=== PATIENT | female | born 1975 | race Caucasian/White ===

== ENCOUNTER 2016-11-06 17:59 | Emergency (ER) | payer MEDICARE ==
[~2016-11-06] VITALS: Wt 125.2 kg
[~2016-11-06 17:59] MED LIST: ABILIFY10 MG PO; ANAPROX DS550 MG PO; ANTIVERT25 MG PO; AUGMENTIN 875 M1 TAB PO; AVPAK AZITHROM250 M1 PO; AZITHROMYCIN500 M2 PO; B12,B-12,B 12500 MC1 PO; BACTRIM DS 8001 TA1 PO; BENTYL10 MG PO; BLEPH-10 15 ML15 ML OPH; CEFDINIR300 MG PO; CIPRODEX 0.3%-7.5 M1; CIPRODEX 0.3%-7.5 ML OT; CIPROFLOXACIN750 MG PO; CLARITIN10 MG PO; CLINDAMYCIN150 MG PO; CLONAZEPAM1 M1; CORTISPORIN SUS10 ML OT; CYCLOBENZAPRINE10 MG PO; DOXYCYCLINE HY100 M3 PO; DUONEB 3 MG/3 ML3 M1 INH; FLAGYL250 MG PO; FLEXERIL10 MG PO; HYDROCODONE BIT1 T11 PO; KEFLEX500 MG PO; KEPPRA1000 MG PO; KEPPRA500 MG PO; LAMICTAL100 MG PO; LAMICTAL200 MG PO; MACROBID100 M1 PO; MOTRIN800 MG PO; MUCINEX ER600 MG PO; Motrin,Rufen800 MG PO; NAPROSYN500 MG PO; NEURONTIN600 MG PO; NORFLEX100 MG PO; OMNICEF300 MG PO; ONFI PO; ONFI10 M1 PO; PAXIL20 MG PO; PAXIL30 M2 PO; PAXIL30 MG PO; PENICILLIN V500 MG PO; PREDNISONE10 M1 PO; PREDNISONE10 MG PO; PREDNISONE20 M1 PO; PREDNISONE50 MG PO; PROVENTIL0.09 MG/A1 INH; SEPTRA DS 800 M1 TAB PO; TESSALON PERLE100 M1 PO; TOBRADEX 0.1% OP; TOBRADEX 0.1% OT; TRAMADOL HCL50 MG PO; TRILEPTAL300 MG PO; TRILEPTAL600 MG; TRIMOX500 MG PO; TYLENOL W/ CODE1 TAB PO; VIBRAMYCIN100 MG PO; VICODIN 5/500 505 MG PO; VICODIN 500 MG-1 TAB PO; VIMPAT200 MG PO; Vicodin 5/500 505 MG PO; ZITHROMAX Z PA250 MG PO; ZITHROMAX250 MG PO; ZOFRAN ODT4 MG SL; ZONEGRAN100 MG PO
[2016-11-06] MEDS ORDERED: PROVERA10 MG PO (18:17)
[2016-11-06 19:31] VITALS: BP 117/57
[2016-11-06 19:37] LABS: BASO # 0.1 10*3/uL (0.0-0.1); BASO % 0.4 % (0.0-1.0); EOS # 0.6 10*3/uL (0.0-0.4); EOS % 2.5 % (1.0-4.0); HEMATOCRIT 38.2 % (37.0-47.0); HEMOGLOBIN 11.3 g/dl (12.0-16.0); IG # 0.1 10*3/uL (0.0-0.1); LYMPH # 4.8 10*3/uL (1.3-4.4); LYMPH % 20.8 % (27.0-41.0); MEAN CELL VOLUME 82.5 fl (81.0-99.0); MEAN CORPUSCULAR HGB 24.4 pg (27.0-31.0); MEAN CORPUSCULAR HGB CONC 29.6 g/dl (33.0-37.0); MONO # 1.1 10*3/uL (0.1-1.0); MONO % 4.9 % (3.0-9.0); NEUT # 16.2 10*3/uL (2.3-7.9); NEUT % 70.8 % (47.0-73.0); PLATELET COUNT AUTOMATED 589 10*3/uL (130-400); RED BLOOD COUNT 4.63 10*6/uL (4.10-5.10); RED CELL DISTRI WIDTH 16.6 % (0-14.5); WHITE BLOOD COUNT 22.9 10*3/uL (4.8-10.8)
[2016-11-06 19:51] LABS: BUN 5 mg/dl (7-24); CARBON DIOXIDE 30 mmol/L (21-32); CHLORIDE 104 mmol/L (98-107); EST GLOM FILT AFRICAN AMERICAN > 60 ml/min; GLUCOSE 85 mg/dL (65-99); POTASSIUM 4.1 mmol/L (3.5-5.1); SODIUM 141 mmol/L (136-145)
[2016-11-06 19:56] LABS: BILIRUBIN NEGATIVE (NEGATIVE); BLOOD NEGATIVE (NEGATIVE); COLOR YELLOW (YELLOW); GLUCOSE NEGATIVE (NEGATIVE); KETONE NEGATIVE (NEGATIVE); LEUKO ESTERASE NEGATIVE (NEGATIVE); NITRITE NEGATIVE (NEGATIVE); PH 5.5 (5.0-9.0); PROTEIN NEGATIVE (NEGATIVE); SPECIFIC GRAVITY <= 1.005 (1.005-1.030); UROBILINOGEN 0.2 E.U./dl (0.2-1.0)
[2016-11-06 20:09] LABS: BACTERIA 1+; CLARITY SL CLOUDY (CLEAR); EPITHELIAL CELLS 25-30; RBC 0-2 rbc/hpf (0-2); URINE REFLEX COMMENT NO (NO)
[2016-11-06] MEDS ORDERED: BACTRIM DS 8001 TA1 PO (20:14)
[2016-11-06] MEDS ORDERED: ANAPROX DS550 MG PO (20:16)
[2016-12-23] MEDS ORDERED: NAPROSYN500 MG PO (15:23)
[2016-12-23] MEDS ORDERED: HYDROCODONE BIT1 T11 PO (15:23)
== END 2016-11-06 20:22 | disposition home or self-care (01) ==
LOC: ED 17:59
PROVIDERS: Physician Assistant
DX: D72.820 Lymphocytosis (symptomatic) (principal); N23 Unspecified renal colic; F17.200 Nicotine dependence, unspecified, uncomplicated; Z90.49 Acquired absence of other specified parts of digestive tract; Z98.890 Other specified postprocedural states; Z98.51 Tubal ligation status; Z88.1 Allergy status to other antibiotic agents

== ENCOUNTER → 2017-03-17 | Outpatient (CLI) | payer MEDICARE ==
[~2017-03-17] MED LIST changes: +PROVERA10 MG PO
== END | disposition home or self-care (01) ==
LOC: RAD 14:42
DX: R05 Cough (principal); R06.02 Shortness of breath; J40 Bronchitis, not specified as acute or chronic; Z87.891 Personal history of nicotine dependence

== ENCOUNTER 2017-03-31 21:43 | Emergency (ER) | payer MEDICARE ==
[~2017-03-31] VITALS: Ht 160 cm; Wt 124.7 kg
[2017-03-31 23:19] VITALS: BP 114/55
== END 2017-03-31 23:52 | disposition home or self-care (01) ==
LOC: ED 21:43
DX: G43.909 Migraine, unspecified, not intractable, without status migrainosus (principal); J45.909 Unspecified asthma, uncomplicated; E53.8 Deficiency of other specified B group vitamins; F41.8 Other specified anxiety disorders; G40.909 Epilepsy, unspecified, not intractable, without status epilepticus; F17.200 Nicotine dependence, unspecified, uncomplicated; E66.01 Morbid (severe) obesity due to excess calories; Z87.442 Personal history of urinary calculi; Z68.42 Body mass index [BMI] 45.0-49.9, adult; Z90.49 Acquired absence of other specified parts of digestive tract; Z98.51 Tubal ligation status; Z98.890 Other specified postprocedural states; Z79.899 Other long term (current) drug therapy; Z88.1 Allergy status to other antibiotic agents

== ENCOUNTER → 2017-04-14 | Outpatient (CLI) | payer MEDICARE | END | disposition home or self-care (01) | LOC: RAD 11:33 | DX: M25.552 Pain in left hip (principal) ==

== ENCOUNTER 2017-04-30 15:16 | Emergency (ER) | payer MEDICARE ==
[~2017-04-30] VITALS: Ht 160 cm; Wt 124.3 kg
[2017-04-30 15:32] VITALS: BP 122/60
[2017-04-30 16:14] LABS: BASO # 0.1 10*3/uL (0.0-0.1); BASO % 0.5 % (0.0-1.0); EOS # 0.5 10*3/uL (0.0-0.4); EOS % 2.1 % (1.0-4.0); HEMATOCRIT 37.1 % (37.0-47.0); IG # 0.2 10*3/uL (0.0-0.1); LYMPH # 4.3 10*3/uL (1.3-4.4); LYMPH % 19.9 % (27.0-41.0); MEAN CELL VOLUME 82.4 fl (81.0-99.0); MEAN CORPUSCULAR HGB 24.4 pg (27.0-31.0); MEAN CORPUSCULAR HGB CONC 29.6 g/dl (33.0-37.0); MEAN PLATELET VOLUME 9.2 fl (9.6-12.3); MONO # 1.4 10*3/uL (0.1-1.0); MONO % 6.4 % (3.0-9.0); NEUT # 15.3 10*3/uL (2.3-7.9); NEUT % 70.4 % (47.0-73.0); PLATELET COUNT AUTOMATED 451 10*3/uL (130-400); RED CELL DISTRI WIDTH 18.6 % (0-14.5); WHITE BLOOD COUNT 21.7 10*3/uL (4.8-10.8)
[2017-04-30 16:29] LABS: BUN 8 mg/dl (7-24); CARBON DIOXIDE 29 mmol/L (21-32); CHLORIDE 103 mmol/L (98-107); EST GLOM FILT AFRICAN AMERICAN > 60 ml/min; GLUCOSE 85 mg/dL (65-99); POTASSIUM 4.4 mmol/L (3.5-5.1); SODIUM 141 mmol/L (136-145)
[2017-04-30 16:30] LABS: TROPONIN I < 0.015 ng/ml (<0.045)
[2017-04-30] MEDS ORDERED: DELTASONE20 M1 PO (16:49)
[2017-04-30] MEDS ORDERED: ZITHROMAX250 MG PO (16:49)
== END 2017-04-30 16:56 | disposition home or self-care (01) ==
LOC: ED 15:16
PROVIDERS: Emergency Medicine
DX: J21.9 Acute bronchiolitis, unspecified (principal); E11.9 Type 2 diabetes mellitus without complications; G43.909 Migraine, unspecified, not intractable, without status migrainosus; F17.200 Nicotine dependence, unspecified, uncomplicated; Z88.1 Allergy status to other antibiotic agents; Z79.899 Other long term (current) drug therapy

== ENCOUNTER 2017-05-24 00:36 | Emergency (ER) | payer MEDICARE ==
[~2017-05-24] VITALS: Ht 160 cm; Wt 123.4 kg
[~2017-05-24 00:36] MED LIST changes: +DELTASONE20 M1 PO
[2017-05-24 01:04] LABS: HEMATOCRIT 37.5 % (37.0-47.0); HEMOGLOBIN 11.4 g/dl (12.0-16.0); MEAN CELL VOLUME 82.2 fl (81.0-99.0); MEAN CORPUSCULAR HGB CONC 30.4 g/dl (33.0-37.0); MEAN PLATELET VOLUME 8.9 fl (9.6-12.3); PLATELET COUNT AUTOMATED 449 10*3/uL (130-400); RED BLOOD COUNT 4.56 10*6/uL (4.10-5.10); WHITE BLOOD COUNT 19.2 10*3/uL (4.8-10.8)
[2017-05-24 01:13] LABS: BILIRUBIN NEGATIVE (NEGATIVE); BLOOD NEGATIVE (NEGATIVE); CLARITY SL CLOUDY (CLEAR); COLOR YELLOW (YELLOW); GLUCOSE NEGATIVE (NEGATIVE); KETONE NEGATIVE (NEGATIVE); LEUKO ESTERASE NEGATIVE (NEGATIVE); NITRITE NEGATIVE (NEGATIVE); PROTEIN TRACE (NEGATIVE); SPECIFIC GRAVITY >= 1.030 (1.005-1.030)
[2017-05-24 01:20] LABS: ALBUMIN 3.4 gm/dl (3.1-4.5); ALKALINE PHOSPHATASE 86 U/L (45-117); BILIRUBIN, TOTAL 0.2 mg/dl (0.2-1.0); BUN 8 mg/dl (7-24); C-REACTIVE PROTEIN 1.15 MG/DL (0-0.3); CARBON DIOXIDE 25 mmol/L (21-32); CHLORIDE 107 mmol/L (98-107); EST GLOM FILT AFRICAN AMERICAN > 60 ml/min; GLUCOSE 123 mg/dL (65-99); SGOT/AST 11 IU/L (3-35); SGPT/ALT 22 U/L (12-78); SODIUM 139 mmol/L (136-145); TOTAL PROTEIN 7.1 gm/dL (6.4-8.2)
[2017-05-24 01:20] LABS: BACTERIA 2+; CALCIUM OXALATE CRYSTALS 1+; EPITHELIAL CELLS 35-40; URINE REFLEX COMMENT YES (NO); WBC 0-2 wbc/hpf (0-5)
[2017-05-24 01:25] LABS: ATYPICAL LYMPHS 1 % (0-0); EOSINOPHIL # 0.8 10*3/uL (0-0.4); EOSINOPHILS 4 % (1-4); LYMPHOCYTE # 5.6 10*3/uL (1.3-4.4); METAMYELOCYTES 2 % (0-0); NEUTROPHIL # 11.5 10*3/uL (2.3-7.9); NEUTROPHILS 60 % (47-73); TOTAL CELLS COUNTED 100 #CELLS
[2017-05-24 01:26] LABS: PLATELET SUFFICIENCY HIGH (NORMAL); POLYCHROMASIA SLIGHT
[2017-05-24] MEDS ORDERED: BACTRIM DS 8001 TA1 PO (03:09)
[2017-05-24 20:39] VITALS: BP 147/77
[2017-05-24 21:11] LABS: BILIRUBIN NEGATIVE (NEGATIVE); BLOOD TRACE-INTACT (NEGATIVE); CLARITY SL CLOUDY (CLEAR); COLOR YELLOW (YELLOW); GLUCOSE NEGATIVE (NEGATIVE); KETONE NEGATIVE (NEGATIVE); LEUKO ESTERASE NEGATIVE (NEGATIVE); NITRITE NEGATIVE (NEGATIVE); PH 5.5 (5.0-9.0); PROTEIN NEGATIVE (NEGATIVE); SPECIFIC GRAVITY <= 1.005 (1.005-1.030); UROBILINOGEN 0.2 E.U./dl (0.2-1.0)
[2017-05-24 21:17] LABS: BASO # 0.1 10*3/uL (0.0-0.1); BASO % 0.3 % (0.0-1.0); EOS # 0.6 10*3/uL (0.0-0.4); EOS % 2.6 % (1.0-4.0); HEMOGLOBIN 11.1 g/dl (12.0-16.0); IG # 0.1 10*3/uL (0.0-0.1); LYMPH # 3.6 10*3/uL (1.3-4.4); MEAN CELL VOLUME 82.4 fl (81.0-99.0); MEAN CORPUSCULAR HGB 25.4 pg (27.0-31.0); MEAN CORPUSCULAR HGB CONC 30.8 g/dl (33.0-37.0); MEAN PLATELET VOLUME 8.9 fl (9.6-12.3); MONO % 4.9 % (3.0-9.0); NEUT # 15.8 10*3/uL (2.3-7.9); NEUT % 74.6 % (47.0-73.0); PLATELET COUNT AUTOMATED 415 10*3/uL (130-400); RED BLOOD COUNT 4.37 10*6/uL (4.10-5.10); RED CELL DISTRI WIDTH 20.3 % (0-14.5); WHITE BLOOD COUNT 21.2 10*3/uL (4.8-10.8)
[2017-05-24 21:19] LABS: BACTERIA 4+; EPITHELIAL CELLS 16-20; URINE REFLEX COMMENT YES (NO); WBC 0-2 wbc/hpf (0-5)
[2017-05-24 21:29] LABS: BUN 6 mg/dl (7-24); CARBON DIOXIDE 25 mmol/L (21-32); CHLORIDE 105 mmol/L (98-107); EST GLOM FILT AFRICAN AMERICAN > 60 ml/min; GLUCOSE 122 mg/dL (65-99); POTASSIUM 4.2 mmol/L (3.5-5.1); SODIUM 139 mmol/L (136-145)
[2017-05-24] MEDS ORDERED: HYDROCODONE BIT1 T11 PO (22:59)
[2017-05-24] MEDS ORDERED: ZOFRAN ODT4 MG SL (22:59)
[2017-05-24] MEDS ORDERED: OMNICEF300 MG PO (23:00)
== END 2017-05-24 23:41 | disposition home or self-care (01) ==
LOC: ED 00:36
PROVIDERS: Physician Assistant; Student in an Organized Health Care Education/Training Program
DX: N39.0 Urinary tract infection, site not specified (principal); R30.0 Dysuria; M54.5 Low back pain; D72.829 Elevated white blood cell count, unspecified; R10.9 Unspecified abdominal pain; G43.909 Migraine, unspecified, not intractable, without status migrainosus; F17.200 Nicotine dependence, unspecified, uncomplicated; Z88.1 Allergy status to other antibiotic agents; Z79.899 Other long term (current) drug therapy; Z87.442 Personal history of urinary calculi; Z90.49 Acquired absence of other specified parts of digestive tract

== ENCOUNTER → 2017-06-01 | Outpatient (CLI) | payer MEDICARE ==
[2017-06-02 17:10] LABS: LEUKOCYTE ALK PHOSPHATASE 139 (25-130)
== END | disposition home or self-care (01) ==
LOC: LAB 12:28
PROVIDERS: Internal Medicine Hematology & Oncology
DX: D72.829 Elevated white blood cell count, unspecified (principal); D75.9 Disease of blood and blood-forming organs, unspecified

== ENCOUNTER → 2017-06-25 | Outpatient (CLI) | payer MEDICARE ==
[2017-06-25 15:23] LABS: MAGNESIUM 2.1 mg/dL (1.5-2.1); URIC ACID 4.7 mg/dL (2.6-6.0)
[2017-06-25 16:14] LABS: PTH INTACT 47.9 pg/mL (14.0-72.0)
== END | disposition home or self-care (01) ==
LOC: LAB 14:20
PROVIDERS: Urology
DX: N20.0 Calculus of kidney (principal); E55.9 Vitamin D deficiency, unspecified

== ENCOUNTER 2017-07-24 20:54 | Emergency (ER) | payer MEDICARE ==
[~2017-07-24] VITALS: Ht 157.4 cm; Wt 124.3 kg
[2017-07-24 21:14] VITALS: BP 130/54
== END 2017-07-25 00:13 | disposition home or self-care (01) ==
LOC: ED 20:54
DX: S90.01XA Contusion of right ankle, initial encounter (principal); E11.9 Type 2 diabetes mellitus without complications; J45.909 Unspecified asthma, uncomplicated; G43.909 Migraine, unspecified, not intractable, without status migrainosus; F17.200 Nicotine dependence, unspecified, uncomplicated; Z88.1 Allergy status to other antibiotic agents; Z79.899 Other long term (current) drug therapy; W10.9XXA Fall (on) (from) unspecified stairs and steps, initial encounter; Y93.89 Activity, other specified; Y92.89 Other specified places as the place of occurrence of the external cause; Y99.8 Other external cause status

== ENCOUNTER 2017-08-14 19:43 | Emergency (ER) | payer MEDICARE ==
[~2017-08-14] VITALS: Ht 157.4 cm; Wt 128.8 kg
[2017-08-14 20:01] VITALS: BP 124/60
== END 2017-08-14 21:45 | disposition home or self-care (01) ==
LOC: ED 19:43
DX: S80.12XA Contusion of left lower leg, initial encounter (principal); R51 Headache; E11.9 Type 2 diabetes mellitus without complications; G43.909 Migraine, unspecified, not intractable, without status migrainosus; F17.200 Nicotine dependence, unspecified, uncomplicated; Z79.899 Other long term (current) drug therapy; Z88.1 Allergy status to other antibiotic agents; W22.8XXA Striking against or struck by other objects, initial encounter; Y93.89 Activity, other specified; Y92.89 Other specified places as the place of occurrence of the external cause; Y99.8 Other external cause status

== ENCOUNTER 2017-08-16 00:12 | Emergency (ER) | payer MEDICARE ==
[~2017-08-16] VITALS: Ht 157.4 cm; Wt 128.8 kg
[2017-08-16 01:16] LABS: HEMATOCRIT 35.2 % (37.0-47.0); HEMOGLOBIN 10.4 g/dl (12.0-16.0); MEAN CELL VOLUME 86.1 fl (81.0-99.0); MEAN CORPUSCULAR HGB 25.4 pg (27.0-31.0); MEAN CORPUSCULAR HGB CONC 29.5 g/dl (33.0-37.0); MEAN PLATELET VOLUME 9.2 fl (9.6-12.3); PLATELET COUNT AUTOMATED 432 10*3/uL (130-400); RED BLOOD COUNT 4.09 10*6/uL (4.10-5.10); RED CELL DISTRI WIDTH 18.4 % (0-14.5); WHITE BLOOD COUNT 15.5 10*3/uL (4.8-10.8)
[2017-08-16 01:30] LABS: ALBUMIN 3.2 gm/dl (3.1-4.5); ALKALINE PHOSPHATASE 85 U/L (45-117); BUN 8 mg/dl (7-24); CHLORIDE 104 mmol/L (98-107); CREATININE 0.68 mg/dL (0.55-1.02); POTASSIUM 4.2 mmol/L (3.5-5.1); SGOT/AST 14 IU/L (3-35); SGPT/ALT 16 U/L (12-78); SODIUM 141 mmol/L (136-145); TOTAL PROTEIN 6.6 gm/dL (6.4-8.2)
[2017-08-16 01:40] LABS: ATYPICAL LYMPHS 1 % (0-0); BASOPHILS 3 % (0-1); TOTAL CELLS COUNTED 100 #CELLS
[2017-08-16 01:41] LABS: PLATELET SUFFICIENCY NORMAL (NORMAL); POLYCHROMASIA SLIGHT
[2017-08-16 01:44] LABS: BILIRUBIN NEGATIVE (NEGATIVE); BLOOD NEGATIVE (NEGATIVE); CLARITY SL CLOUDY (CLEAR); COLOR YELLOW (YELLOW); GLUCOSE NEGATIVE (NEGATIVE); KETONE TRACE (NEGATIVE); LEUKO ESTERASE NEGATIVE (NEGATIVE); NITRITE NEGATIVE (NEGATIVE); PH 5.5 (5.0-9.0); SPECIFIC GRAVITY >= 1.030 (1.005-1.030)
[2017-08-16 01:52] LABS: BACTERIA 1+; EPITHELIAL CELLS 45-50
[2017-08-16 01:53] LABS: WBC 0-2 wbc/hpf (0-5)
[2017-08-16 03:02] VITALS: BP 134/51
[2017-08-16] MEDS ORDERED: CYCLOBENZAPRINE5 M3 PO (03:02)
== END 2017-08-16 03:07 | disposition home or self-care (01) ==
LOC: ED 00:12
PROVIDERS: Nurse Practitioner Family
DX: M54.5 Low back pain (principal); F17.200 Nicotine dependence, unspecified, uncomplicated; G43.909 Migraine, unspecified, not intractable, without status migrainosus; E66.01 Morbid (severe) obesity due to excess calories; E11.9 Type 2 diabetes mellitus without complications; Z87.442 Personal history of urinary calculi; Z68.42 Body mass index [BMI] 45.0-49.9, adult; Z90.49 Acquired absence of other specified parts of digestive tract; Z98.890 Other specified postprocedural states; Z98.51 Tubal ligation status; Z79.899 Other long term (current) drug therapy; Z88.1 Allergy status to other antibiotic agents

== ENCOUNTER 2017-11-03 00:27 | Emergency (ER) | payer MEDICARE ==
[~2017-11-03] VITALS: Ht 160 cm; Wt 124.3 kg
[~2017-11-03 00:27] MED LIST changes: +CYCLOBENZAPRINE5 M3 PO
[2017-11-03 00:52] LABS: HEMATOCRIT 36.3 % (37.0-47.0); MEAN CELL VOLUME 83.4 fl (81.0-99.0); MEAN CORPUSCULAR HGB 25.3 pg (27.0-31.0); MEAN CORPUSCULAR HGB CONC 30.3 g/dl (33.0-37.0); MEAN PLATELET VOLUME 8.7 fl (9.6-12.3); PLATELET COUNT AUTOMATED 447 10*3/uL (130-400); RED BLOOD COUNT 4.35 10*6/uL (4.10-5.10); RED CELL DISTRI WIDTH 17.2 % (0-14.5); WHITE BLOOD COUNT 16.8 10*3/uL (4.8-10.8)
[2017-11-03 01:01] LABS: ACT PARTIAL THROMBO TIME 26.3 SECONDS (20.8-31.5)
[2017-11-03 01:10] LABS: BASOPHILS 1 % (0-1); PLATELET SUFFICIENCY HIGH (NORMAL); TOTAL CELLS COUNTED 100 #CELLS
[2017-11-03 01:11] LABS: POLYCHROMASIA SLIGHT
[2017-11-03 01:12] LABS: ALBUMIN 3.4 gm/dl (3.1-4.5); ALKALINE PHOSPHATASE 83 U/L (45-117); BUN 5 mg/dl (7-24); CHLORIDE 102 mmol/L (98-107); CREATININE 0.69 mg/dL (0.55-1.02); POTASSIUM 3.7 mmol/L (3.5-5.1); SGOT/AST 14 IU/L (3-35); SGPT/ALT 19 U/L (12-78); SODIUM 137 mmol/L (136-145); TOTAL PROTEIN 6.8 gm/dL (6.4-8.2)
[2017-11-03 01:15] LABS: TROPONIN I < 0.015 ng/ml (<0.045)
[2017-11-03 02:54] VITALS: BP 131/76
== END 2017-11-03 03:32 | disposition home or self-care (01) ==
LOC: ED 00:27
PROVIDERS: Student in an Organized Health Care Education/Training Program
DX: R07.89 Other chest pain (principal); J45.901 Unspecified asthma with (acute) exacerbation; F32.9 Major depressive disorder, single episode, unspecified; F17.200 Nicotine dependence, unspecified, uncomplicated; F41.9 Anxiety disorder, unspecified; Z87.442 Personal history of urinary calculi; Z88.1 Allergy status to other antibiotic agents; Z79.899 Other long term (current) drug therapy; Z68.42 Body mass index [BMI] 45.0-49.9, adult; Z90.49 Acquired absence of other specified parts of digestive tract; Z90.89 Acquired absence of other organs; Z98.51 Tubal ligation status

== ENCOUNTER → 2017-11-04 | Outpatient (CLI) | payer MEDICARE ==
[2017-11-04 14:39] LABS: BASO # 0.1 10*3/uL (0.0-0.1); BASO % 0.6 % (0.0-1.0); EOS # 0.6 10*3/uL (0.0-0.4); EOS % 3.3 % (1.0-4.0); HEMOGLOBIN 11.5 g/dl (12.0-16.0); LYMPH # 4.8 10*3/uL (1.3-4.4); LYMPH % 27.7 % (27.0-41.0); MEAN CELL VOLUME 83.5 fl (81.0-99.0); MEAN CORPUSCULAR HGB 25.3 pg (27.0-31.0); MEAN CORPUSCULAR HGB CONC 30.3 g/dl (33.0-37.0); MEAN PLATELET VOLUME 8.4 fl (9.6-12.3); MONO # 1.4 10*3/uL (0.1-1.0); MONO % 8.2 % (3.0-9.0); NEUT # 10.3 10*3/uL (2.3-7.9); NEUT % 59.6 % (47.0-73.0); PLATELET COUNT AUTOMATED 476 10*3/uL (130-400); RED BLOOD COUNT 4.55 10*6/uL (4.10-5.10); RED CELL DISTRI WIDTH 17.5 % (0-14.5); WHITE BLOOD COUNT 17.3 10*3/uL (4.8-10.8)
== END | disposition home or self-care (01) ==
LOC: LAB 14:16
PROVIDERS: Internal Medicine Hematology & Oncology
DX: D72.829 Elevated white blood cell count, unspecified (principal)

== ENCOUNTER 2017-12-13 21:14 | Emergency (ER) | payer MEDICARE ==
[~2017-12-13] VITALS: Ht 160 cm; Wt 118.4 kg
[2017-12-13 21:19] VITALS: BP 135/64
[2017-12-13] MEDS ORDERED: LISINOPRIL5 MG PO (21:24)
[2017-12-13 21:55] LABS: BILIRUBIN NEGATIVE (NEGATIVE); BLOOD NEGATIVE (NEGATIVE); CLARITY SL CLOUDY (CLEAR); COLOR YELLOW (YELLOW); GLUCOSE NEGATIVE (NEGATIVE); KETONE NEGATIVE (NEGATIVE); LEUKO ESTERASE NEGATIVE (NEGATIVE); NITRITE NEGATIVE (NEGATIVE); PH 5.5 (5.0-9.0); UROBILINOGEN 0.2 E.U./dl (0.2-1.0)
[2017-12-13 22:01] LABS: BACTERIA 2+; RBC 0-2 rbc/hpf (0-2)
== END 2017-12-13 22:09 | disposition home or self-care (01) ==
LOC: ED 21:14
PROVIDERS: Student in an Organized Health Care Education/Training Program
DX: M54.16 Radiculopathy, lumbar region (principal); J45.901 Unspecified asthma with (acute) exacerbation; F32.9 Major depressive disorder, single episode, unspecified; F41.9 Anxiety disorder, unspecified; N20.0 Calculus of kidney; E78.1 Pure hyperglyceridemia; G43.909 Migraine, unspecified, not intractable, without status migrainosus; F17.200 Nicotine dependence, unspecified, uncomplicated; Z88.1 Allergy status to other antibiotic agents; Z88.8 Allergy status to other drugs, medicaments and biological substances; Z90.89 Acquired absence of other organs; Z90.49 Acquired absence of other specified parts of digestive tract; Z98.51 Tubal ligation status

== ENCOUNTER → 2018-01-07 | Outpatient (CLI) | payer MEDICARE ==
[~2018-01-07] MED LIST changes: +LISINOPRIL5 MG PO
== END | disposition home or self-care (01) ==
LOC: RAD 12:34
DX: M17.11 Unilateral primary osteoarthritis, right knee (principal)

== ENCOUNTER 2018-01-27 02:43 | Emergency (ER) | payer MEDICARE ==
[~2018-01-27] VITALS: Ht 167.6 cm; Wt 113.4 kg
[2018-01-27 02:48] VITALS: BP 125/66
[2018-01-27] MEDS ORDERED: ANAPROX DS550 MG PO (04:13)
== END 2018-01-27 04:45 | disposition home or self-care (01) ==
LOC: ED 02:43
DX: S96.911A Strain of unspecified muscle and tendon at ankle and foot level, right foot, initial encounter (principal); S80.01XA Contusion of right knee, initial encounter; M17.11 Unilateral primary osteoarthritis, right knee; G43.909 Migraine, unspecified, not intractable, without status migrainosus; E66.01 Morbid (severe) obesity due to excess calories; E11.9 Type 2 diabetes mellitus without complications; F17.200 Nicotine dependence, unspecified, uncomplicated; Z68.43 Body mass index [BMI] 50.0-59.9, adult; Z90.49 Acquired absence of other specified parts of digestive tract; Z98.890 Other specified postprocedural states; Z87.442 Personal history of urinary calculi; Z98.51 Tubal ligation status; Z79.899 Other long term (current) drug therapy; Z88.1 Allergy status to other antibiotic agents; W19.XXXA Unspecified fall, initial encounter; Y93.89 Activity, other specified; Y92.89 Other specified places as the place of occurrence of the external cause; Y99.9 Unspecified external cause status

== ENCOUNTER → 2018-02-05 | Outpatient (CLI) | payer MEDICARE ==
[2018-02-05 10:23] LABS: BASO # 0.1 10*3/uL (0.0-0.1); BASO % 0.8 % (0.0-1.0); EOS # 0.6 10*3/uL (0.0-0.4); EOS % 4.5 % (1.0-4.0); HEMATOCRIT 38.9 % (37.0-47.0); HEMOGLOBIN 11.6 g/dl (12.0-16.0); LYMPH # 3.4 10*3/uL (1.3-4.4); LYMPH % 27.5 % (27.0-41.0); MEAN CELL VOLUME 87.2 fl (81.0-99.0); MEAN CORPUSCULAR HGB CONC 29.8 g/dl (33.0-37.0); MEAN PLATELET VOLUME 8.7 fl (9.6-12.3); MONO # 0.8 10*3/uL (0.1-1.0); MONO % 6.3 % (3.0-9.0); NEUT # 7.6 10*3/uL (2.3-7.9); NEUT % 60.4 % (47.0-73.0); PLATELET COUNT AUTOMATED 465 10*3/uL (130-400); RED BLOOD COUNT 4.46 10*6/uL (4.10-5.10); RED CELL DISTRI WIDTH 17.1 % (0-14.5); WHITE BLOOD COUNT 12.5 10*3/uL (4.8-10.8)
== END | disposition home or self-care (01) ==
LOC: LAB 10:07
PROVIDERS: Internal Medicine Hematology & Oncology
DX: D75.9 Disease of blood and blood-forming organs, unspecified (principal)

== ENCOUNTER → 2018-02-19 | Outpatient (CLI) | payer MEDICARE ==
[~2018-02-19] MED LIST changes: +MIRAPEX0.125 M1 PO
== END | disposition home or self-care (01) ==
LOC: RAD 10:27
DX: M54.5 Low back pain (principal)

== ENCOUNTER 2018-02-20 22:52 | Emergency (ER) | payer MEDICARE ==
[~2018-02-20] VITALS: Ht 160 cm; Wt 118.4 kg
[~2018-02-20 22:52] MED LIST changes: -MIRAPEX0.125 M1 PO
[2018-02-20 23:31] VITALS: BP 99/50
[2018-02-21] MEDS ORDERED: MIRAPEX0.125 M1 PO (15:18)
== END 2018-02-21 00:24 | disposition home or self-care (01) ==
LOC: ED 22:52
DX: R20.2 Paresthesia of skin (principal); Z90.49 Acquired absence of other specified parts of digestive tract; Z79.899 Other long term (current) drug therapy; Z88.1 Allergy status to other antibiotic agents

== ENCOUNTER 2018-02-21 15:13 | Emergency (ER) | payer MEDICARE ==
[~2018-02-21] VITALS: Ht 160 cm; Wt 118.4 kg
[2018-02-21] MEDS ORDERED: MIRAPEX0.125 M1 PO (15:18)
[2018-02-21 15:47] LABS: BASO # 0.1 10*3/uL (0.0-0.1); BASO % 0.7 % (0.0-1.0); EOS # 0.5 10*3/uL (0.0-0.4); EOS % 3.4 % (1.0-4.0); HEMATOCRIT 37.9 % (37.0-47.0); HEMOGLOBIN 11.8 g/dl (12.0-16.0); LYMPH # 3.9 10*3/uL (1.3-4.4); LYMPH % 24.6 % (27.0-41.0); MEAN CELL VOLUME 85.2 fl (81.0-99.0); MEAN CORPUSCULAR HGB 26.5 pg (27.0-31.0); MEAN CORPUSCULAR HGB CONC 31.1 g/dl (33.0-37.0); MEAN PLATELET VOLUME 8.8 fl (9.6-12.3); MONO # 0.8 10*3/uL (0.1-1.0); MONO % 5.3 % (3.0-9.0); NEUT # 10.3 10*3/uL (2.3-7.9); NEUT % 65.6 % (47.0-73.0); PLATELET COUNT AUTOMATED 433 10*3/uL (130-400); RED BLOOD COUNT 4.45 10*6/uL (4.10-5.10); RED CELL DISTRI WIDTH 16.5 % (0-14.5); WHITE BLOOD COUNT 15.7 10*3/uL (4.8-10.8)
[2018-02-21 16:04] LABS: ALBUMIN 3.4 gm/dl (3.1-4.5); ALKALINE PHOSPHATASE 101 U/L (45-117); BUN 10 mg/dl (7-24); CHLORIDE 102 mmol/L (98-107); CREATININE 0.73 mg/dL (0.55-1.02); POTASSIUM 3.8 mmol/L (3.5-5.1); SGOT/AST 7 IU/L (3-35); SGPT/ALT 19 U/L (12-78); SODIUM 137 mmol/L (136-145); TOTAL PROTEIN 6.9 gm/dL (6.4-8.2)
[2018-02-21 16:06] LABS: TROPONIN I < 0.015 ng/ml (<0.045)
[2018-02-21 16:12] LABS: BILIRUBIN NEGATIVE (NEGATIVE); BLOOD NEGATIVE (NEGATIVE); CLARITY CLEAR (CLEAR); COLOR YELLOW (YELLOW); GLUCOSE NEGATIVE (NEGATIVE); KETONE NEGATIVE (NEGATIVE); LEUKO ESTERASE NEGATIVE (NEGATIVE); NITRITE NEGATIVE (NEGATIVE)
[2018-02-21 16:32] LABS: BACTERIA 1+; EPITHELIAL CELLS 50-55; RBC 0-2 rbc/hpf (0-2); WBC 0-2 wbc/hpf (0-5)
[2018-02-21 16:33] VITALS: BP 110/64
== END 2018-02-21 16:34 | disposition home or self-care (01) ==
LOC: ED 15:13
PROVIDERS: Emergency Medicine
DX: R20.2 Paresthesia of skin (principal); R53.1 Weakness; R20.0 Anesthesia of skin; J45.909 Unspecified asthma, uncomplicated; G43.909 Migraine, unspecified, not intractable, without status migrainosus; E11.9 Type 2 diabetes mellitus without complications; F17.200 Nicotine dependence, unspecified, uncomplicated; Z88.1 Allergy status to other antibiotic agents; Z79.899 Other long term (current) drug therapy

== ENCOUNTER → 2018-03-01 | Outpatient (CLI) | payer MEDICARE ==
[~2018-03-01] MED LIST changes: +MIRAPEX0.125 M1 PO
== END | disposition home or self-care (01) ==
LOC: LAB 13:44
PROVIDERS: Physician Assistant Medical
DX: R58 Hemorrhage, not elsewhere classified (principal)

== ENCOUNTER → 2018-03-03 | Outpatient (CLI) | payer MEDICARE | END | disposition home or self-care (01) | LOC: US 10:27 | DX: R20.0 Anesthesia of skin (principal); R20.2 Paresthesia of skin; F17.200 Nicotine dependence, unspecified, uncomplicated ==

== ENCOUNTER → 2018-03-04 | Outpatient (CLI) | payer MEDICARE | END | disposition home or self-care (01) | LOC: MRI 00:17 | DX: M54.16 Radiculopathy, lumbar region (principal); G89.29 Other chronic pain; M54.5 Low back pain; R29.810 Facial weakness; R20.0 Anesthesia of skin; R20.2 Paresthesia of skin ==

== ENCOUNTER → 2018-03-24 | Outpatient (CLI) | payer MEDICARE ==
[~2018-03-24] MED LIST changes: +ASPIRIN81 M1 PO; +GLUCOTROL XL2.5 MG PO; -MIRAPEX0.125 M1 PO; +MIRAPEX0.25 M1 PO; +VITAMIN D5000 UNIT PO
[2018-03-25 16:08] LABS: ANTICARDIOLIPIN AB, IGG, QN 16 GPL U/mL (0-14); ANTICARDIOLIPIN AB, IGM, QN <9 MPL U/mL (0-12)
[2018-03-26 00:08] LABS: ANTI-THROMBIN III ACTIVITY 107 % (75-135); PROTEIN S-FUNCTIONAL 164525 93 % (63-140); PTT-LA 47.9 sec (0.0-51.9)
[2018-03-26 06:13] LABS: LUPUS DRVVT 51.6 sec (0.0-47.0); LUPUS REFLEX INTERPRETATION Comment: (.)
[2018-03-26 13:07] LABS: PHOSPHOLIPIDS 001727 246 mg/dL (150-250)
== END | disposition home or self-care (01) ==
LOC: LAB 13:59
PROVIDERS: Physician Assistant Medical
DX: G45.9 Transient cerebral ischemic attack, unspecified (principal); R58 Hemorrhage, not elsewhere classified

== ENCOUNTER 2018-03-25 05:16 | Inpatient (IN) | payer MEDICARE ==
[~2018-03-25] VITALS: Ht 158.8 cm; Wt 123.9 kg
[2018-03-25 05:16] VITALS: BP 105/54
[~2018-03-25 05:16] MED LIST changes: -ASPIRIN81 M1 PO; -GLUCOTROL XL2.5 MG PO; -VITAMIN D5000 UNIT PO
[2018-03-25 05:46] LABS: BASO # 0.1 10*3/uL (0.0-0.1); BASO % 0.6 % (0.0-1.0); EOS # 0.6 10*3/uL (0.0-0.4); EOS % 3.8 % (1.0-4.0); HEMATOCRIT 40.6 % (37.0-47.0); HEMOGLOBIN 12.4 g/dl (12.0-16.0); LYMPH # 4.7 10*3/uL (1.3-4.4); LYMPH % 32.7 % (27.0-41.0); MEAN CORPUSCULAR HGB 27.2 pg (27.0-31.0); MEAN CORPUSCULAR HGB CONC 30.5 g/dl (33.0-37.0); MONO # 0.8 10*3/uL (0.1-1.0); MONO % 5.6 % (3.0-9.0); NEUT # 8.2 10*3/uL (2.3-7.9); NEUT % 56.8 % (47.0-73.0); PLATELET COUNT AUTOMATED 481 10*3/uL (130-400); RED BLOOD COUNT 4.56 10*6/uL (4.10-5.10); RED CELL DISTRI WIDTH 16.5 % (0-14.5); WHITE BLOOD COUNT 14.5 10*3/uL (4.8-10.8)
[2018-03-25 06:01] VITALS: BP 115/48
[2018-03-25 06:03] LABS: ALBUMIN 3.5 gm/dl (3.1-4.5); ALKALINE PHOSPHATASE 105 U/L (45-117); BUN 10 mg/dl (7-24); CHLORIDE 102 mmol/L (98-107); CREATININE 0.78 mg/dL (0.55-1.02); POTASSIUM 4.7 mmol/L (3.5-5.1); SGOT/AST 18 IU/L (3-35); SGPT/ALT 22 U/L (12-78); SODIUM 140 mmol/L (136-145); TOTAL PROTEIN 7.5 gm/dL (6.4-8.2)
[2018-03-25 06:56] VITALS: BP 110/48
[2018-03-25 07:30] VITALS: BP 106/73
[2018-03-25 08:00] VITALS: BP 106/73
[2018-03-25] MEDS ORDERED: VITAMIN D5000 UNIT PO (08:46)
[2018-03-25] MEDS ORDERED: ASPIRIN81 M1 PO (08:47)
[2018-03-25] MEDS ORDERED: GLUCOTROL XL2.5 MG PO (08:47)
[2018-03-25 12:00] VITALS: BP 118/53
== END 2018-03-25 16:10 | disposition left against medical advice (07) | DRG 189 ==
LOC: ED 05:16 → EDHOLD 06:35 → 4E 06:35
PROVIDERS: Emergency Medicine
DX: J96.01 Acute respiratory failure with hypoxia (principal); R65.10 Systemic inflammatory response syndrome (SIRS) of non-infectious origin without acute organ dysfunction; J44.1 Chronic obstructive pulmonary disease with (acute) exacerbation; E44.0 Moderate protein-calorie malnutrition; J45.901 Unspecified asthma with (acute) exacerbation; E66.01 Morbid (severe) obesity due to excess calories; Z68.42 Body mass index [BMI] 45.0-49.9, adult; I10 Essential (primary) hypertension; F41.1 Generalized anxiety disorder; E78.5 Hyperlipidemia, unspecified; F32.9 Major depressive disorder, single episode, unspecified; K08.409 Partial loss of teeth, unspecified cause, unspecified class; D72.829 Elevated white blood cell count, unspecified; R73.9 Hyperglycemia, unspecified; G40.909 Epilepsy, unspecified, not intractable, without status epilepticus; Z53.21 Procedure and treatment not carried out due to patient leaving prior to being seen by health care provider; Z90.49 Acquired absence of other specified parts of digestive tract; Z98.51 Tubal ligation status; Z82.5 Family history of asthma and other chronic lower respiratory diseases; Z79.899 Other long term (current) drug therapy; Z88.0 Allergy status to penicillin; Z79.82 Long term (current) use of aspirin; Z72.0 Tobacco use; Z71.6 Tobacco abuse counseling

== ENCOUNTER 2018-04-04 17:50 | Inpatient (IN) | payer MEDICARE ==
[~2018-04-04] VITALS: Ht 157.4 cm; Wt 125.2 kg
[~2018-04-04 17:50] MED LIST changes: +ASPIRIN81 M1 PO; +GLUCOTROL XL2.5 MG PO; +VITAMIN D5000 UNIT PO
[2018-04-04 17:54] VITALS: BP 105/45
[2018-04-04 18:28] LABS: HEMATOCRIT 36.6 % (37.0-47.0); HEMOGLOBIN 11.2 g/dl (12.0-16.0); MEAN CELL VOLUME 88.4 fl (81.0-99.0); MEAN CORPUSCULAR HGB 27.1 pg (27.0-31.0); MEAN CORPUSCULAR HGB CONC 30.6 g/dl (33.0-37.0); MEAN PLATELET VOLUME 9.2 fl (9.6-12.3); PLATELET COUNT AUTOMATED 415 10*3/uL (130-400); RED BLOOD COUNT 4.14 10*6/uL (4.10-5.10); RED CELL DISTRI WIDTH 16.3 % (0-14.5); WHITE BLOOD COUNT 19.5 10*3/uL (4.8-10.8)
[2018-04-04 18:38] LABS: ACT PARTIAL THROMBO TIME 21.5 SECONDS (20.8-31.5); INTERNATIONAL NORM RATIO 0.9 (2.0-3.5)
[2018-04-04 18:48] LABS: ALBUMIN 3.4 gm/dl (3.1-4.5); ALKALINE PHOSPHATASE 102 U/L (45-117); BUN 9 mg/dl (7-24); CHLORIDE 105 mmol/L (98-107); CREATININE 0.83 mg/dL (0.55-1.02); POTASSIUM 3.9 mmol/L (3.5-5.1); SGOT/AST 10 IU/L (3-35); SGPT/ALT 21 U/L (12-78); SODIUM 142 mmol/L (136-145); TOTAL PROTEIN 7.2 gm/dL (6.4-8.2)
[2018-04-04 18:49] LABS: PLATELET SUFFICIENCY HIGH (NORMAL); POLYCHROMASIA SLIGHT; TOTAL CELLS COUNTED 100 #CELLS
[2018-04-04 18:50] LABS: STOMATOCYTE FEW
[2018-04-04 18:52] LABS: TROPONIN I < 0.015 ng/ml (<0.045)
[2018-04-04 19:05] VITALS: BP 131/99
[2018-04-04] MEDS ORDERED: PREDNISONE10 MG PO (19:05)
[2018-04-04 20:00] VITALS: BP 131/99
[2018-04-05] VITALS: BP 107/56
[2018-04-05 04:48] LABS: BILIRUBIN NEGATIVE (NEGATIVE); BLOOD NEGATIVE (NEGATIVE); CLARITY CLEAR (CLEAR); COLOR YELLOW (YELLOW); GLUCOSE 2+ (NEGATIVE); KETONE NEGATIVE (NEGATIVE); LEUKO ESTERASE NEGATIVE (NEGATIVE); NITRITE NEGATIVE (NEGATIVE); SPECIFIC GRAVITY 1.025 (1.005-1.030); UROBILINOGEN 0.2 E.U./dl (0.2-1.0)
[2018-04-05 04:55] LABS: EPITHELIAL CELLS 15-20; WBC 0-2 wbc/hpf (0-5)
[2018-04-05 06:41] LABS: BASO # 0.1 10*3/uL (0.0-0.1); BASO % 0.3 % (0.0-1.0); HEMATOCRIT 38.2 % (37.0-47.0); HEMOGLOBIN 11.4 g/dl (12.0-16.0); LYMPH % 10.7 % (27.0-41.0); MEAN CORPUSCULAR HGB 26.6 pg (27.0-31.0); MEAN CORPUSCULAR HGB CONC 29.8 g/dl (33.0-37.0); MEAN PLATELET VOLUME 9.1 fl (9.6-12.3); MONO # 0.3 10*3/uL (0.1-1.0); MONO % 1.7 % (3.0-9.0); NEUT # 16.3 10*3/uL (2.3-7.9); NEUT % 85.8 % (47.0-73.0); PLATELET COUNT AUTOMATED 419 10*3/uL (130-400); RED BLOOD COUNT 4.29 10*6/uL (4.10-5.10); RED CELL DISTRI WIDTH 16.2 % (0-14.5)
[2018-04-05 07:07] LABS: BUN 11 mg/dl (7-24); CHLORIDE 103 mmol/L (98-107); CHOLESTEROL 178 mg/dL (<200); CREATININE 0.72 mg/dL (0.55-1.02); PHOSPHOROUS 3.4 mg/dL (2.5-4.9); POTASSIUM 4.6 mmol/L (3.5-5.1); SODIUM 141 mmol/L (136-145); TRIGLYCERIDES 69 mg/dl (<150); VLDL CHOLESTEROL 14 mg/dL (6-40)
[2018-04-05 07:17] LABS: HDL CHOLESTEROL 44 mg/dl (40-60); LDL CHOLESTEROL 120 mg/dL (9-159); THYROID STIM HORMONE (HS) 0.311 uIU/ml (0.358-4.75)
[2018-04-05 07:48] LABS: VITAMIN D, 25-HYDROXY 27.7 ng/mL (30-100)
[2018-04-05 08:00] VITALS: BP 131/51
[2018-04-05 12:00] VITALS: BP 139/54
[2018-04-05 16:00] VITALS: BP 122/55
[2018-04-05 17:17] LABS: HEMATOCRIT 37.5 % (37.0-47.0); HEMOGLOBIN 11.3 g/dl (12.0-16.0); MEAN CELL VOLUME 88.9 fl (81.0-99.0); MEAN CORPUSCULAR HGB 26.8 pg (27.0-31.0); MEAN CORPUSCULAR HGB CONC 30.1 g/dl (33.0-37.0); MEAN PLATELET VOLUME 9.2 fl (9.6-12.3); PLATELET COUNT AUTOMATED 428 10*3/uL (130-400); RED BLOOD COUNT 4.22 10*6/uL (4.10-5.10); RED CELL DISTRI WIDTH 16.4 % (0-14.5); WHITE BLOOD COUNT 23.7 10*3/uL (4.8-10.8)
[2018-04-05 17:42] LABS: PLATELET SUFFICIENCY NORMAL (NORMAL); TOTAL CELLS COUNTED 100 #CELLS
[2018-04-05 20:00] VITALS: BP 124/58
[2018-04-06] VITALS: BP 100/58
[2018-04-06 08:00] VITALS: BP 107/53
[2018-04-06] MEDS ORDERED: PREDNISONE10 MG PO (08:42)
[2018-04-06] MEDS ORDERED: ZITHROMAX500 MG PO (08:42)
== END 2018-04-06 11:21 | disposition home or self-care (01) | DRG 190 ==
LOC: ED 17:50 → EDHOLD 18:02 → 4E 18:02
PROVIDERS: Emergency Medicine; Registered Nurse; Student in an Organized Health Care Education/Training Program
DX: J44.1 Chronic obstructive pulmonary disease with (acute) exacerbation (principal); J18.9 Pneumonia, unspecified organism; E11.65 Type 2 diabetes mellitus with hyperglycemia; Z68.42 Body mass index [BMI] 45.0-49.9, adult; F17.210 Nicotine dependence, cigarettes, uncomplicated; J44.0 Chronic obstructive pulmonary disease with (acute) lower respiratory infection; F41.1 Generalized anxiety disorder; E78.5 Hyperlipidemia, unspecified; E55.9 Vitamin D deficiency, unspecified; I10 Essential (primary) hypertension; G40.909 Epilepsy, unspecified, not intractable, without status epilepticus; F32.9 Major depressive disorder, single episode, unspecified; Z78.9 Other specified health status; Z88.1 Allergy status to other antibiotic agents; Z79.82 Long term (current) use of aspirin; Z79.899 Other long term (current) drug therapy; Z98.51 Tubal ligation status; Z98.891 History of uterine scar from previous surgery; Z90.49 Acquired absence of other specified parts of digestive tract; Z82.5 Family history of asthma and other chronic lower respiratory diseases; Z79.84 Long term (current) use of oral hypoglycemic drugs; Z71.6 Tobacco abuse counseling

== ENCOUNTER → 2018-05-11 | Outpatient (CLI) | payer MEDICARE ==
[~2018-05-11] MED LIST changes: +ZITHROMAX500 MG PO
== END | disposition home or self-care (01) ==
LOC: US 14:38
DX: R22.1 Localized swelling, mass and lump, neck (principal)

== ENCOUNTER 2018-06-07 23:25 | Emergency (ER) | payer MEDICARE ==
[~2018-06-07] VITALS: Ht 157.4 cm; Wt 124.7 kg
[2018-06-07 23:27] VITALS: BP 121/53
== END 2018-06-08 02:35 | disposition home or self-care (01) ==
LOC: ED 23:25
DX: M77.41 Metatarsalgia, right foot (principal); M79.671 Pain in right foot; F17.200 Nicotine dependence, unspecified, uncomplicated; J45.909 Unspecified asthma, uncomplicated; E11.65 Type 2 diabetes mellitus with hyperglycemia; I10 Essential (primary) hypertension; E66.01 Morbid (severe) obesity due to excess calories; G40.909 Epilepsy, unspecified, not intractable, without status epilepticus; Z68.42 Body mass index [BMI] 45.0-49.9, adult; Z98.51 Tubal ligation status; Z90.49 Acquired absence of other specified parts of digestive tract; Z98.890 Other specified postprocedural states; Z79.82 Long term (current) use of aspirin; Z79.899 Other long term (current) drug therapy; Z88.1 Allergy status to other antibiotic agents

== ENCOUNTER 2018-07-24 19:22 | Emergency (ER) | payer MEDICARE ==
[~2018-07-24] VITALS: Ht 157.4 cm; Wt 124.7 kg
[2018-07-24 19:22] VITALS: BP 127/49
[2018-07-24] MEDS ORDERED: REQUIP0.25 M1 PO (19:27)
[2018-07-24] MEDS ORDERED: REQUIP1 M1 PO (19:27)
[2018-09-04] MEDS ORDERED: ROPINIROLE HYDRO1 MG PO (01:03)
[2018-09-05] MEDS ORDERED: VIBRAMYCIN100 MG PO (11:22)
[2018-09-05] MEDS ORDERED: PREDNISONE10 MG PO (11:22)
== END 2018-07-24 19:54 | disposition home or self-care (01) ==
LOC: ED 19:22
DX: G25.81 Restless legs syndrome (principal); F17.200 Nicotine dependence, unspecified, uncomplicated; Z88.1 Allergy status to other antibiotic agents; Z79.899 Other long term (current) drug therapy; Z79.82 Long term (current) use of aspirin

== ENCOUNTER 2018-08-21 10:09 | Emergency (ER) | payer MEDICARE ==
[~2018-08-21] VITALS: Ht 157.4 cm; Wt 120.2 kg
[~2018-08-21 10:09] MED LIST changes: +REQUIP0.25 M1 PO; +REQUIP1 M1 PO
[2018-08-21 10:12] VITALS: BP 158/71
[2018-09-04] MEDS ORDERED: ROPINIROLE HYDRO1 MG PO (01:03)
[2018-09-05] MEDS ORDERED: VIBRAMYCIN100 MG PO (11:22)
[2018-09-05] MEDS ORDERED: PREDNISONE10 MG PO (11:22)
== END 2018-08-21 10:23 | disposition home or self-care (01) ==
LOC: ED 10:09
DX: G25.81 Restless legs syndrome (principal); R03.0 Elevated blood-pressure reading, without diagnosis of hypertension; J44.9 Chronic obstructive pulmonary disease, unspecified; E11.9 Type 2 diabetes mellitus without complications; I10 Essential (primary) hypertension; E78.5 Hyperlipidemia, unspecified; E66.01 Morbid (severe) obesity due to excess calories; F17.200 Nicotine dependence, unspecified, uncomplicated; Z90.49 Acquired absence of other specified parts of digestive tract; Z79.82 Long term (current) use of aspirin; Z79.899 Other long term (current) drug therapy; Z79.84 Long term (current) use of oral hypoglycemic drugs; Z88.1 Allergy status to other antibiotic agents

== ENCOUNTER 2018-08-29 02:10 | Emergency (ER) | payer MEDICARE ==
[~2018-08-29] VITALS: Ht 157.4 cm; Wt 119.7 kg
[2018-08-29 02:16] VITALS: BP 114/75
[2018-09-04] MEDS ORDERED: ROPINIROLE HYDRO1 MG PO (01:03)
[2018-09-05] MEDS ORDERED: VIBRAMYCIN100 MG PO (11:22)
[2018-09-05] MEDS ORDERED: PREDNISONE10 MG PO (11:22)
== END 2018-08-29 02:54 | disposition home or self-care (01) ==
LOC: ED 02:10
DX: G25.81 Restless legs syndrome (principal); Z88.1 Allergy status to other antibiotic agents; Z79.899 Other long term (current) drug therapy; Z79.82 Long term (current) use of aspirin

== ENCOUNTER 2018-09-02 12:35 | Emergency (ER) | payer MEDICARE ==
[~2018-09-02] VITALS: Ht 157.4 cm; Wt 119.7 kg
[2018-09-02 14:10] LABS: BASO # 0.1 10*3/uL (0.0-0.1); BASO % 0.5 % (0.0-1.0); EOS # 0.7 10*3/uL (0.0-0.4); EOS % 3.2 % (1.0-4.0); HEMATOCRIT 42.5 % (37.0-47.0); HEMOGLOBIN 13.5 g/dl (12.0-16.0); LYMPH # 4.8 10*3/uL (1.3-4.4); MEAN CORPUSCULAR HGB 28.9 pg (27.0-31.0); MEAN CORPUSCULAR HGB CONC 31.8 g/dl (33.0-37.0); MONO # 1.3 10*3/uL (0.1-1.0); MONO % 5.7 % (3.0-9.0); NEUT # 15.6 10*3/uL (2.3-7.9); NEUT % 68.9 % (47.0-73.0); PLATELET COUNT AUTOMATED 463 10*3/uL (130-400); RED BLOOD COUNT 4.67 10*6/uL (4.10-5.10); WHITE BLOOD COUNT 22.7 10*3/uL (4.8-10.8)
[2018-09-02 14:27] LABS: ALBUMIN 3.8 gm/dl (3.1-4.5); ALKALINE PHOSPHATASE 102 U/L (45-117); BUN 12 mg/dl (7-24); CHLORIDE 104 mmol/L (98-107); POTASSIUM 4.7 mmol/L (3.5-5.1); SGOT/AST 10 IU/L (3-35); SGPT/ALT 19 U/L (12-78); SODIUM 140 mmol/L (136-145); TOTAL PROTEIN 7.5 gm/dL (6.4-8.2)
[2018-09-02 14:31] LABS: TROPONIN I < 0.015 ng/ml (<0.045)
[2018-09-02 15:14] LABS: BILIRUBIN NEGATIVE (NEGATIVE); BLOOD NEGATIVE (NEGATIVE); CLARITY CLEAR (CLEAR); COLOR YELLOW (YELLOW); GLUCOSE NEGATIVE (NEGATIVE); KETONE NEGATIVE (NEGATIVE); LEUKO ESTERASE NEGATIVE (NEGATIVE); NITRITE NEGATIVE (NEGATIVE); PH 6.5 (5.0-9.0); UROBILINOGEN 0.2 E.U./dl (0.2-1.0)
[2018-09-02 15:26] LABS: URINE AMPHETAMINES < 1000 (1000ng/ml); URINE BARBITURATES < 200 (200ng/ml); URINE BENZODIAZEPINES > 200 (200ng/ml); URINE CANNABINOIDS (THC) < 50 (50ng/ml); URINE COCAINE < 300 (300ng/ml); URINE METHADONE < 300 (300ng/ml); URINE OPIATES < 300 (300ng/ml)
[2018-09-02 15:29] LABS: URINE PHENCYCLIDINE < 25 (25ng/ml)
[2018-09-02 15:34] LABS: BACTERIA TRACE
[2018-09-02] MEDS ORDERED: ZITHROMAX250 MG PO (16:02)
[2018-09-02 16:11] VITALS: BP 104/51
[2018-09-04] MEDS ORDERED: ROPINIROLE HYDRO1 MG PO (01:03)
[2018-09-05] MEDS ORDERED: PREDNISONE10 MG PO (11:22)
[2018-09-05] MEDS ORDERED: VIBRAMYCIN100 MG PO (11:22)
== END 2018-09-02 16:10 | disposition home or self-care (01) ==
LOC: ED 12:35
PROVIDERS: Physician Assistant
DX: S09.90XA Unspecified injury of head, initial encounter (principal); M54.2 Cervicalgia; R79.1 Abnormal coagulation profile; F17.200 Nicotine dependence, unspecified, uncomplicated; Z88.1 Allergy status to other antibiotic agents; Z79.899 Other long term (current) drug therapy; Z79.82 Long term (current) use of aspirin; W18.39XA Other fall on same level, initial encounter; Y93.89 Activity, other specified; Y92.89 Other specified places as the place of occurrence of the external cause; Y99.8 Other external cause status

== ENCOUNTER 2018-11-17 20:22 | Emergency (ER) | payer MEDICARE ==
[~2018-11-17] VITALS: Ht 157.4 cm; Wt 119.7 kg
[~2018-11-17 20:22] MED LIST changes: +ROPINIROLE HYDRO1 MG PO
[2018-11-17] MEDS ORDERED: PROAIR HFA8.5 GM INH (20:26)
[2018-11-17] MEDS ORDERED: GABAPENTIN600 MG PO (20:26)
[2018-11-17] MEDS ORDERED: PANTOPRAZOLE SO20 MG PO (20:27)
[2018-11-17] MEDS ORDERED: Ipratropium Brom3 ML INH (20:27)
[2018-11-17 20:28] VITALS: BP 116/58
== END 2018-11-17 22:10 | disposition home or self-care (01) ==
LOC: ED 20:22
DX: M25.562 Pain in left knee (principal); F17.200 Nicotine dependence, unspecified, uncomplicated; Z88.1 Allergy status to other antibiotic agents; Z79.84 Long term (current) use of oral hypoglycemic drugs; Z79.899 Other long term (current) drug therapy; Z90.49 Acquired absence of other specified parts of digestive tract

== ENCOUNTER 2018-12-24 01:38 | Emergency (ER) | payer MEDICARE ==
[~2018-12-24] VITALS: Ht 157.4 cm; Wt 119.7 kg
[~2018-12-24 01:38] MED LIST changes: +GABAPENTIN600 MG PO; +Ipratropium Brom3 ML INH; +PANTOPRAZOLE SO20 MG PO; +PROAIR HFA8.5 GM INH
[2018-12-24 01:43] VITALS: BP 147/58
[2018-12-24] MEDS ORDERED: Motrin,Rufen800 MG PO (03:13)
[2018-12-24] MEDS ORDERED: NASA MIST SALIN75 ML NAS (03:13)
[2019-05-01] MEDS ORDERED: ROPINIROLE HYDRO1 MG PO (03:11)
== END 2018-12-24 03:10 | disposition home or self-care (01) ==
LOC: ED 01:38
DX: S00.83XA Contusion of other part of head, initial encounter (principal); R03.0 Elevated blood-pressure reading, without diagnosis of hypertension; E11.9 Type 2 diabetes mellitus without complications; I10 Essential (primary) hypertension; E78.5 Hyperlipidemia, unspecified; E66.01 Morbid (severe) obesity due to excess calories; G40.909 Epilepsy, unspecified, not intractable, without status epilepticus; J45.909 Unspecified asthma, uncomplicated; F17.200 Nicotine dependence, unspecified, uncomplicated; Z68.42 Body mass index [BMI] 45.0-49.9, adult; Z88.1 Allergy status to other antibiotic agents; Z79.899 Other long term (current) drug therapy; W18.39XA Other fall on same level, initial encounter; Y93.89 Activity, other specified; Y92.89 Other specified places as the place of occurrence of the external cause; Y99.8 Other external cause status

== ENCOUNTER → 2019-06-01 | Outpatient (CLI) | payer MEDICARE ==
[~2019-06-01] MED LIST changes: +NASA MIST SALIN75 ML NAS
== END | disposition home or self-care (01) ==
LOC: ORTHO 01:20
DX: M17.11 Unilateral primary osteoarthritis, right knee (principal)

== ENCOUNTER 2019-07-27 03:14 | Emergency (ER) | payer MEDICARE ==
[~2019-07-27] VITALS: Ht 160 cm; Wt 100.2 kg
[2019-07-27 03:17] VITALS: BP 109/59
== END 2019-07-27 05:09 | disposition home or self-care (01) ==
LOC: ED 03:14
DX: S09.90XA Unspecified injury of head, initial encounter (principal); J45.909 Unspecified asthma, uncomplicated; E11.9 Type 2 diabetes mellitus without complications; I10 Essential (primary) hypertension; E66.01 Morbid (severe) obesity due to excess calories; E78.5 Hyperlipidemia, unspecified; G40.909 Epilepsy, unspecified, not intractable, without status epilepticus; F17.200 Nicotine dependence, unspecified, uncomplicated; Z68.42 Body mass index [BMI] 45.0-49.9, adult; Z88.1 Allergy status to other antibiotic agents; W22.01XA Walked into wall, initial encounter; Y93.89 Activity, other specified; Y92.098 Other place in other non-institutional residence as the place of occurrence of the external cause; Y99.8 Other external cause status

== ENCOUNTER → 2019-08-11 | Outpatient (CLI) | payer MEDICARE ==
[2019-08-11 09:30] LABS: BASO # 0.1 10*3/uL (0.0-0.1); BASO % 0.7 % (0.0-1.0); EOS # 0.6 10*3/uL (0.0-0.4); EOS % 4.2 % (1.0-4.0); HEMATOCRIT 44.6 % (37.0-47.0); HEMOGLOBIN 14.3 g/dl (12.0-16.0); LYMPH # 3.7 10*3/uL (1.3-4.4); LYMPH % 26.4 % (27.0-41.0); MEAN CELL VOLUME 93.9 fl (81.0-99.0); MEAN CORPUSCULAR HGB 30.1 pg (27.0-31.0); MEAN CORPUSCULAR HGB CONC 32.1 g/dl (33.0-37.0); MONO # 0.8 10*3/uL (0.1-1.0); MONO % 5.6 % (3.0-9.0); NEUT # 8.7 10*3/uL (2.3-7.9); NEUT % 62.8 % (47.0-73.0); PLATELET COUNT AUTOMATED 480 10*3/uL (130-400); RED BLOOD COUNT 4.75 10*6/uL (4.10-5.10); RED CELL DISTRI WIDTH 14.3 % (0-14.5); WHITE BLOOD COUNT 13.8 10*3/uL (4.8-10.8)
[2019-08-11 09:55] LABS: ALBUMIN 3.7 gm/dl (3.1-4.5); ALKALINE PHOSPHATASE 98 U/L (45-117); BUN 11 mg/dl (7-24); CHLORIDE 107 mmol/L (98-107); CREATININE 0.88 mg/dL (0.55-1.02); POTASSIUM 4.2 mmol/L (3.5-5.1); SGOT/AST 6 IU/L (3-35); SGPT/ALT 14 U/L (12-78); SODIUM 140 mmol/L (136-145); TOTAL PROTEIN 7.4 gm/dL (6.4-8.2)
== END | disposition home or self-care (01) ==
LOC: LAB 09:05
PROVIDERS: Physician Assistant Medical
DX: Z51.81 Encounter for therapeutic drug level monitoring (principal); G40.909 Epilepsy, unspecified, not intractable, without status epilepticus

== ENCOUNTER 2020-04-18 21:36 | Emergency (ER) | payer MEDICARE ==
[2020-04-18 21:59] VITALS: BP 117/92
== END 2020-04-18 23:28 | disposition home or self-care (01) ==
LOC: ED 21:36
DX: G25.81 Restless legs syndrome (principal); J44.9 Chronic obstructive pulmonary disease, unspecified; F17.200 Nicotine dependence, unspecified, uncomplicated; Z88.1 Allergy status to other antibiotic agents; Z79.899 Other long term (current) drug therapy

== ENCOUNTER 2020-05-13 23:46 | Emergency (ER) | payer MEDICARE ==
[~2020-05-13] VITALS: Wt 119.3 kg
[2020-05-14 00:02] VITALS: BP 127/65
[2020-05-14 01:06] LABS: BILIRUBIN NEGATIVE (NEGATIVE); BLOOD NEGATIVE (NEGATIVE); CLARITY CLEAR (CLEAR); COLOR YELLOW (YELLOW); GLUCOSE NEGATIVE (NEGATIVE); KETONE NEGATIVE (NEGATIVE); LEUKO ESTERASE NEGATIVE (NEGATIVE); NITRITE NEGATIVE (NEGATIVE); UROBILINOGEN 0.2 E.U./dl (0.2-1.0)
[2020-05-14 01:09] LABS: BACTERIA TRACE; CALCIUM OXALATE CRYSTALS 1+; MUCOUS 2+; RBC 0-2 rbc/hpf (0-2); WBC 0-2 wbc/hpf (0-5)
[2020-05-14 01:37] LABS: HEMATOCRIT 42.7 % (37.0-47.0); MEAN CELL VOLUME 92.8 fl (81.0-99.0); MEAN CORPUSCULAR HGB 29.6 pg (27.0-31.0); MEAN CORPUSCULAR HGB CONC 31.9 g/dl (33.0-37.0); MEAN PLATELET VOLUME 9.1 fl (9.6-12.3); PLATELET COUNT AUTOMATED 447 10*3/uL (130-400); RED CELL DISTRI WIDTH 14.2 % (0-14.5); WHITE BLOOD COUNT 17.6 10*3/uL (4.8-10.8)
[2020-05-14 01:49] LABS: ALBUMIN 3.6 gm/dl (3.1-4.5); ALKALINE PHOSPHATASE 98 U/L (45-117); BUN 11 mg/dl (7-24); CHLORIDE 107 mmol/L (98-107); CREATININE 0.83 mg/dL (0.55-1.02); POTASSIUM 3.6 mmol/L (3.5-5.1); SGOT/AST 8 IU/L (3-35); SGPT/ALT 14 U/L (12-78); SODIUM 141 mmol/L (136-145); TOTAL PROTEIN 7.3 gm/dL (6.4-8.2)
[2020-05-14 01:58] LABS: BASOPHILS 1 % (0-1); PLATELET SUFFICIENCY HIGH (NORMAL); TOTAL CELLS COUNTED 100 #CELLS
== END 2020-05-14 05:21 | disposition home or self-care (01) ==
LOC: ED 23:46
PROVIDERS: Emergency Medicine
DX: R10.9 Unspecified abdominal pain (principal); I10 Essential (primary) hypertension; E78.5 Hyperlipidemia, unspecified; J44.9 Chronic obstructive pulmonary disease, unspecified; F41.9 Anxiety disorder, unspecified; F32.9 Major depressive disorder, single episode, unspecified; Z88.8 Allergy status to other drugs, medicaments and biological substances; Z79.899 Other long term (current) drug therapy; Z90.49 Acquired absence of other specified parts of digestive tract

== ENCOUNTER 2020-05-24 14:33 | Emergency (ER) | payer MEDICARE ==
[2020-05-24 14:56] LABS: HEMATOCRIT 40.4 % (37.0-47.0); MEAN CELL VOLUME 90.6 fl (81.0-99.0); MEAN CORPUSCULAR HGB 29.4 pg (27.0-31.0); MEAN CORPUSCULAR HGB CONC 32.4 g/dl (33.0-37.0); MEAN PLATELET VOLUME 9.2 fl (9.6-12.3); PLATELET COUNT AUTOMATED 441 10*3/uL (130-400); RED BLOOD COUNT 4.46 10*6/uL (4.10-5.10); RED CELL DISTRI WIDTH 13.8 % (0-14.5); WHITE BLOOD COUNT 26.5 10*3/uL (4.8-10.8)
[2020-05-24 15:05] LABS: ACT PARTIAL THROMBO TIME 29.4 SECONDS (20.0-32.1)
[2020-05-24 15:09] LABS: ALBUMIN 3.6 gm/dl (3.1-4.5); ALKALINE PHOSPHATASE 97 U/L (45-117); BUN 8 mg/dl (7-24); CHLORIDE 105 mmol/L (98-107); CREATININE 0.96 mg/dL (0.55-1.02); POTASSIUM 3.7 mmol/L (3.5-5.1); SGOT/AST 13 IU/L (3-35); SGPT/ALT 16 U/L (12-78); SODIUM 137 mmol/L (136-145); TOTAL PROTEIN 7.6 gm/dL (6.4-8.2)
[2020-05-24 15:11] LABS: TROPONIN I < 0.015 ng/ml (<0.045)
[2020-05-24 15:15] LABS: BASOPHILS 1 % (0-1); PLATELET SUFFICIENCY HIGH (NORMAL); TOTAL CELLS COUNTED 100 #CELLS
[2020-05-24 15:46] VITALS: BP 108/44
[2020-05-24] MEDS ORDERED: PREDNISONE50 MG PO (15:51)
[2020-05-24] MEDS ORDERED: ZITHROMAX500 MG PO (15:51)
[2020-05-24] MEDS ORDERED: TESSALON PERLE100 MG PO (15:52)
== END 2020-05-24 16:02 | disposition home or self-care (01) ==
LOC: ED 14:33
PROVIDERS: Emergency Medicine
DX: J20.9 Acute bronchitis, unspecified (principal); J44.9 Chronic obstructive pulmonary disease, unspecified; F17.200 Nicotine dependence, unspecified, uncomplicated; Z88.1 Allergy status to other antibiotic agents; Z79.899 Other long term (current) drug therapy

== ENCOUNTER 2020-07-14 22:14 | Emergency (ER) | payer OTHER, MEDICARE ==
[~2020-07-14] VITALS: Ht 160 cm; Wt 114.3 kg
[~2020-07-14 22:14] MED LIST changes: +TESSALON PERLE100 MG PO
[2020-07-14 22:31] LABS: HEMATOCRIT 40.6 % (37.0-47.0); MEAN CORPUSCULAR HGB CONC 32.3 g/dl (33.0-37.0); PLATELET COUNT AUTOMATED 473 10*3/uL (130-400); RED BLOOD COUNT 4.51 10*6/uL (4.10-5.10); RED CELL DISTRI WIDTH 14.3 % (0-14.5); WHITE BLOOD COUNT 25.9 10*3/uL (4.8-10.8)
[2020-07-14 22:46] LABS: ALBUMIN 3.6 gm/dl (3.1-4.5); ALKALINE PHOSPHATASE 91 U/L (45-117); BUN 6 mg/dl (7-24); CHLORIDE 106 mmol/L (98-107); CREATININE 0.95 mg/dL (0.55-1.02); POTASSIUM 3.8 mmol/L (3.5-5.1); SGOT/AST 6 IU/L (3-35); SGPT/ALT 13 U/L (12-78); SODIUM 140 mmol/L (136-145); TOTAL PROTEIN 7.2 gm/dL (6.4-8.2)
[2020-07-14 22:55] LABS: ATYPICAL LYMPHS 1 % (0-0); TOTAL CELLS COUNTED 100 #CELLS
[2020-07-14 22:56] LABS: PLATELET SUFFICIENCY HIGH (NORMAL)
[2020-07-15 00:34] VITALS: BP 96/35
[2020-07-15 00:39] LABS: ACT PARTIAL THROMBO TIME 28.1 SECONDS (20.0-32.1)
[2020-07-15 01:30] LABS: BILIRUBIN NEGATIVE; BLOOD NEGATIVE (NEGATIVE); CLARITY CLOUDY (CLEAR); COLOR YELLOW (YELLOW); GLUCOSE NEGATIVE; KETONE NEGATIVE; LEUKO ESTERASE NEGATIVE (NEGATIVE); NITRITE NEGATIVE (NEGATIVE)
[2020-07-15 01:35] LABS: BACTERIA TRACE; EPITHELIAL CELLS 21-30; RBC 0-2 rbc/hpf (0-2); WBC 0-2 wbc/hpf (0-5)
== END 2020-07-15 02:00 | disposition short-term general hospital (02) ==
LOC: ED 22:14
PROVIDERS: Nurse Practitioner
DX: G40.89 Other seizures (principal); D72.829 Elevated white blood cell count, unspecified; F32.9 Major depressive disorder, single episode, unspecified; F41.9 Anxiety disorder, unspecified; J44.9 Chronic obstructive pulmonary disease, unspecified; F17.200 Nicotine dependence, unspecified, uncomplicated; Z88.8 Allergy status to other drugs, medicaments and biological substances; Z79.899 Other long term (current) drug therapy; Z90.49 Acquired absence of other specified parts of digestive tract

== ENCOUNTER 2020-12-24 04:47 | Emergency (ER) | payer MEDICARE, OTHER ==
[~2020-12-24] VITALS: Ht 157.4 cm; Wt 111.6 kg
[2020-12-24 06:00] VITALS: BP 105/60
== END 2020-12-24 06:16 | disposition home or self-care (01) ==
LOC: ED 04:47
DX: T78.40XA Allergy, unspecified, initial encounter (principal); F32.9 Major depressive disorder, single episode, unspecified; F41.9 Anxiety disorder, unspecified; R56.9 Unspecified convulsions; F17.200 Nicotine dependence, unspecified, uncomplicated; Z88.8 Allergy status to other drugs, medicaments and biological substances; Z79.899 Other long term (current) drug therapy; Z90.49 Acquired absence of other specified parts of digestive tract; Z98.890 Other specified postprocedural states; X58.XXXA Exposure to other specified factors, initial encounter

== ENCOUNTER 2021-02-12 05:50 | Emergency (ER) | payer MEDICARE, OTHER ==
[~2021-02-12] VITALS: Ht 160 cm; Wt 120.2 kg
[2021-02-12 05:55] VITALS: BP 132/65
[2021-02-12] MEDS ORDERED: NAPROXEN250 MG PO (06:22)
== END 2021-02-12 06:31 | disposition home or self-care (01) ==
LOC: ED 05:50
DX: M79.642 Pain in left hand (principal); M79.645 Pain in left finger(s); F41.9 Anxiety disorder, unspecified; F32.9 Major depressive disorder, single episode, unspecified; F17.200 Nicotine dependence, unspecified, uncomplicated; Z88.8 Allergy status to other drugs, medicaments and biological substances; Z79.899 Other long term (current) drug therapy; Z98.890 Other specified postprocedural states; Z90.49 Acquired absence of other specified parts of digestive tract; Z98.51 Tubal ligation status

== ENCOUNTER 2021-03-02 03:09 | Emergency (ER) | payer MEDICARE, OTHER ==
[~2021-03-02] VITALS: Ht 157.4 cm; Wt 118.8 kg
[~2021-03-02 03:09] MED LIST changes: +NAPROXEN250 MG PO
[2021-03-02 03:24] VITALS: BP 137/41
== END 2021-03-02 05:31 | disposition home or self-care (01) ==
LOC: ED 03:09
DX: R07.81 Pleurodynia (principal); J45.909 Unspecified asthma, uncomplicated; E11.9 Type 2 diabetes mellitus without complications; I10 Essential (primary) hypertension; E78.5 Hyperlipidemia, unspecified; F17.200 Nicotine dependence, unspecified, uncomplicated; Z98.890 Other specified postprocedural states; Z79.899 Other long term (current) drug therapy; Z98.51 Tubal ligation status

== ENCOUNTER 2021-04-24 01:41 | Inpatient (IN) | payer MEDICARE ==
[~2021-04-24] VITALS: Ht 165.1 cm; Wt 113.0 kg
[2021-04-24] VITALS (8 sets, daily range): BP systolic 108–140; BP diastolic 56–84
[2021-04-24 02:30] LABS: BASO # 0.1 10*3/uL (0.0-0.1); BASO % 0.6 % (0.0-1.0); EOS # 0.5 10*3/uL (0.0-0.4); HEMATOCRIT 38.3 % (37.0-47.0); LYMPH % 23.6 % (27.0-41.0); MEAN CELL VOLUME 91.8 fl (81.0-99.0); MEAN CORPUSCULAR HGB CONC 31.6 g/dl (33.0-37.0); MONO # 1.1 10*3/uL (0.1-1.0); MONO % 8.1 % (3.0-9.0); NEUT # 8.1 10*3/uL (2.3-7.9); NEUT % 63.2 % (47.0-73.0); PLATELET COUNT AUTOMATED 357 10*3/uL (130-400); RED BLOOD COUNT 4.17 10*6/uL (4.10-5.10); RED CELL DISTRI WIDTH 14.4 % (0-14.5); WHITE BLOOD COUNT 12.9 10*3/uL (4.8-10.8)
[2021-04-24 02:46] LABS: ALKALINE PHOSPHATASE 99 U/L (45-117); BUN 6 mg/dl (7-24); CHLORIDE 105 mmol/L (98-107); POTASSIUM 3.7 mmol/L (3.5-5.1); SGOT/AST 15 IU/L (3-35); SGPT/ALT 17 U/L (12-78); SODIUM 137 mmol/L (136-145); TOTAL PROTEIN 7.2 gm/dL (6.4-8.2)
[2021-04-24] MEDS ORDERED: REQUIP2 MG PO (06:38)
[2021-04-25] VITALS: BP 139/57
[2021-04-25 06:37] LABS: BASO % 0.2 % (0.0-1.0); EOS % 0.1 % (1.0-4.0); HEMATOCRIT 41.2 % (37.0-47.0); LYMPH % 13.9 % (27.0-41.0); MEAN CELL VOLUME 94.5 fl (81.0-99.0); MEAN CORPUSCULAR HGB 29.1 pg (27.0-31.0); MEAN CORPUSCULAR HGB CONC 30.8 g/dl (33.0-37.0); MEAN PLATELET VOLUME 9.5 fl (9.6-12.3); MONO # 0.8 10*3/uL (0.1-1.0); MONO % 5.7 % (3.0-9.0); NEUT # 11.4 10*3/uL (2.3-7.9); NEUT % 79.1 % (47.0-73.0); PLATELET COUNT AUTOMATED 424 10*3/uL (130-400); RED BLOOD COUNT 4.36 10*6/uL (4.10-5.10); RED CELL DISTRI WIDTH 14.5 % (0-14.5); WHITE BLOOD COUNT 14.4 10*3/uL (4.8-10.8)
[2021-04-25 07:07] LABS: ALBUMIN 3.2 gm/dl (3.1-4.5); BUN 9 mg/dl (7-24); CHLORIDE 108 mmol/L (98-107); CHOLESTEROL 227 mg/dL (<200); CREATININE 0.75 mg/dL (0.55-1.02); POTASSIUM 4.4 mmol/L (3.5-5.1); SGPT/ALT 18 U/L (12-78); SODIUM 140 mmol/L (136-145)
[2021-04-25 07:15] LABS: ALKALINE PHOSPHATASE 102 U/L (45-117); LDL CHOLESTEROL 168 mg/dL (9-159); SGOT/AST 9 IU/L (3-35); THYROID STIM HORMONE (HS) 0.289 uIU/ml (0.358-4.75); TOTAL PROTEIN 7.8 gm/dL (6.4-8.2); TRIGLYCERIDES 81 mg/dl (<150)
[2021-04-25 08:00] VITALS: BP 129/57
[2021-04-25 08:26] LABS: VITAMIN D, 25-HYDROXY 12.9 ng/mL (30-100)
[2021-04-25 12:00] VITALS: BP 128/68
[2021-04-25 16:00] VITALS: BP 123/75
[2021-04-25 20:00] VITALS: BP 124/72
[2021-04-26] VITALS: BP 133/80
[2021-04-26 08:00] VITALS: BP 117/72
[2021-04-26] MEDS ORDERED: PHARMASSURE FO0.4 MG PO (11:31)
[2021-04-26] MEDS ORDERED: AUGMENTIN 875875 MG PO (11:31)
[2021-04-26] MEDS ORDERED: VITAMIN D250 MCG PO (11:32)
[2021-04-26 12:00] VITALS: BP 130/72
[2021-04-26 15:07] LABS: MYCOPLASMA PNEUMONIAE IGG 153 U/mL (0-99); MYCOPLASMA PNEUMONIAE IGM <770 U/mL (0-769)
== END 2021-04-26 13:15 | disposition home or self-care (01) | DRG 871 ==
LOC: ED 01:41 → 4E 05:42 → EDHOLD 05:42 → 5E 05:58 → 4E 08:09
PROVIDERS: Emergency Medicine; Hospitalist; Internal Medicine Critical Care Medicine; ADMIT Internal Medicine; ATTEND Internal Medicine
DX: A41.9 Sepsis, unspecified organism (principal); J96.01 Acute respiratory failure with hypoxia; J15.9 Unspecified bacterial pneumonia; J45.901 Unspecified asthma with (acute) exacerbation; F33.9 Major depressive disorder, recurrent, unspecified; Z68.41 Body mass index [BMI] 40.0-44.9, adult; E44.1 Mild protein-calorie malnutrition; G40.909 Epilepsy, unspecified, not intractable, without status epilepticus; R65.20 Severe sepsis without septic shock; E11.65 Type 2 diabetes mellitus with hyperglycemia; I10 Essential (primary) hypertension; E66.01 Morbid (severe) obesity due to excess calories; E78.5 Hyperlipidemia, unspecified; Z20.822 Contact with and (suspected) exposure to COVID-19; F17.210 Nicotine dependence, cigarettes, uncomplicated; D47.3 Essential (hemorrhagic) thrombocythemia; F41.1 Generalized anxiety disorder; G25.81 Restless legs syndrome; Z71.6 Tobacco abuse counseling; Z88.1 Allergy status to other antibiotic agents; Z91.81 History of falling; Z87.01 Personal history of pneumonia (recurrent); Z90.49 Acquired absence of other specified parts of digestive tract; Z98.891 History of uterine scar from previous surgery; Z98.51 Tubal ligation status; Z82.5 Family history of asthma and other chronic lower respiratory diseases

== ENCOUNTER 2021-04-29 07:27 | Emergency (ER) | payer MEDICARE ==
[~2021-04-29] VITALS: Ht 157.4 cm; Wt 118.8 kg
[~2021-04-29 07:27] MED LIST changes: +AUGMENTIN 875875 MG PO; +PHARMASSURE FO0.4 MG PO; +REQUIP2 MG PO; +VITAMIN D250 MCG PO
[2021-04-29 07:37] VITALS: BP 132/63
[2021-04-29] MEDS ORDERED: MEDROL DOSEPAK4 MG PO (11:32)
== END 2021-04-29 11:30 | disposition home or self-care (01) ==
LOC: ED 07:27
DX: M54.12 Radiculopathy, cervical region (principal); F17.200 Nicotine dependence, unspecified, uncomplicated; Z88.1 Allergy status to other antibiotic agents; Z79.899 Other long term (current) drug therapy; Z79.2 Long term (current) use of antibiotics; Z90.89 Acquired absence of other organs; Z90.49 Acquired absence of other specified parts of digestive tract; Z96.22 Myringotomy tube(s) status; Z98.890 Other specified postprocedural states; Z98.1 Arthrodesis status

== ENCOUNTER 2021-05-18 22:14 | Emergency (ER) | payer MEDICARE ==
[~2021-05-18] VITALS: Ht 160 cm; Wt 118.8 kg
[~2021-05-18 22:14] MED LIST changes: +MEDROL DOSEPAK4 MG PO
[2021-05-18 23:01] VITALS: BP 108/47
[2021-05-18] MEDS ORDERED: IBU800 MG PO ×2 (23:23)
[2021-05-18] MEDS ORDERED: CYCLOBENZAPRINE10 MG PO ×2 (23:23)
== END 2021-05-19 00:48 | disposition home or self-care (01) ==
LOC: ED 22:14
DX: M62.830 Muscle spasm of back (principal); M54.5 Low back pain; J44.9 Chronic obstructive pulmonary disease, unspecified; F17.200 Nicotine dependence, unspecified, uncomplicated; Z88.1 Allergy status to other antibiotic agents; Z79.2 Long term (current) use of antibiotics; Z79.899 Other long term (current) drug therapy; Z90.89 Acquired absence of other organs; Z96.22 Myringotomy tube(s) status; Z90.49 Acquired absence of other specified parts of digestive tract; Z98.51 Tubal ligation status; Z98.890 Other specified postprocedural states

== ENCOUNTER 2021-05-26 17:41 | Emergency (ER) | payer MEDICARE ==
[~2021-05-26] VITALS: Wt 118.8 kg
[~2021-05-26 17:41] MED LIST changes: +IBU800 MG PO
[2021-05-26 17:46] VITALS: BP 114/67
== END 2021-05-26 19:30 | disposition home or self-care (01) ==
LOC: ED 17:41
DX: S80.02XA Contusion of left knee, initial encounter (principal); S80.12XA Contusion of left lower leg, initial encounter; F17.200 Nicotine dependence, unspecified, uncomplicated; Z88.1 Allergy status to other antibiotic agents; Z79.899 Other long term (current) drug therapy; Z79.2 Long term (current) use of antibiotics; Z90.89 Acquired absence of other organs; Z96.22 Myringotomy tube(s) status; Z90.49 Acquired absence of other specified parts of digestive tract; Z98.890 Other specified postprocedural states; Z98.51 Tubal ligation status; W19.XXXA Unspecified fall, initial encounter; Y93.89 Activity, other specified; Y92.830 Public park as the place of occurrence of the external cause; Y99.8 Other external cause status

== ENCOUNTER 2021-05-28 22:38 | Emergency (ER) | payer MEDICARE ==
[2021-05-28 22:59] VITALS: BP 146/59
[2021-05-28] MEDS ORDERED: SEPTDS PO ×2 (23:17)
== END 2021-05-29 00:10 | disposition home or self-care (01) ==
LOC: ED 22:38
DX: S80.812A Abrasion, left lower leg, initial encounter (principal); L08.9 Local infection of the skin and subcutaneous tissue, unspecified; F17.200 Nicotine dependence, unspecified, uncomplicated; Z88.1 Allergy status to other antibiotic agents; Z79.899 Other long term (current) drug therapy; Z79.2 Long term (current) use of antibiotics; Z90.89 Acquired absence of other organs; Z96.22 Myringotomy tube(s) status; Z90.49 Acquired absence of other specified parts of digestive tract; Z98.890 Other specified postprocedural states; W19.XXXA Unspecified fall, initial encounter; Y93.89 Activity, other specified; Y92.89 Other specified places as the place of occurrence of the external cause; Y99.8 Other external cause status

== ENCOUNTER 2021-06-19 23:56 | Emergency (ER) | payer MEDICARE ==
[~2021-06-19] VITALS: Ht 172.7 cm; Wt 116.6 kg
[~2021-06-19 23:56] MED LIST changes: +SEPTDS PO
[2021-06-20 00:08] VITALS: BP 158/69
== END 2021-06-20 00:36 | disposition home or self-care (01) ==
LOC: ED 23:56
DX: M79.651 Pain in right thigh (principal); L53.9 Erythematous condition, unspecified; M79.89 Other specified soft tissue disorders; E66.9 Obesity, unspecified; F17.200 Nicotine dependence, unspecified, uncomplicated; Z88.1 Allergy status to other antibiotic agents; Z79.899 Other long term (current) drug therapy; Z79.2 Long term (current) use of antibiotics; Z90.89 Acquired absence of other organs; Z96.22 Myringotomy tube(s) status; Z90.49 Acquired absence of other specified parts of digestive tract; Z98.890 Other specified postprocedural states; Z98.51 Tubal ligation status

== ENCOUNTER → 2021-06-20 | Outpatient (CLI) | payer OTHER ==
[~2021-06-20] MED LIST changes: +CEPHALEXIN500 M1 PO; +TYLENOL325 M1 PO
== END | disposition home or self-care (01) ==
LOC: US 11:30
PROVIDERS: ATTEND Internal Medicine
DX: L53.9 Erythematous condition, unspecified (principal); M79.604 Pain in right leg; R22.43 Localized swelling, mass and lump, lower limb, bilateral

== ENCOUNTER 2021-06-23 07:51 | Emergency (ER) | payer OTHER ==
[~2021-06-23] VITALS: Ht 160 cm; Wt 113.4 kg
[~2021-06-23 07:51] MED LIST changes: -CEPHALEXIN500 M1 PO; -TYLENOL325 M1 PO
[2021-06-23 08:14] VITALS: BP 115/85
[2021-06-23] MEDS ORDERED: TYLENOL325 M1 PO (08:50)
[2021-06-23] MEDS ORDERED: NAPROXEN250 MG PO (08:50)
[2021-06-23] MEDS ORDERED: CEPHALEXIN500 M1 PO (08:50)
== END 2021-06-23 08:59 | disposition home or self-care (01) ==
LOC: ED 07:51
DX: I80.01 Phlebitis and thrombophlebitis of superficial vessels of right lower extremity (principal); J45.909 Unspecified asthma, uncomplicated; E11.9 Type 2 diabetes mellitus without complications; I10 Essential (primary) hypertension; E78.5 Hyperlipidemia, unspecified; F32.9 Major depressive disorder, single episode, unspecified; G40.909 Epilepsy, unspecified, not intractable, without status epilepticus; Z88.1 Allergy status to other antibiotic agents; Z79.2 Long term (current) use of antibiotics; Z79.899 Other long term (current) drug therapy; Z90.49 Acquired absence of other specified parts of digestive tract; Z90.89 Acquired absence of other organs; Z96.22 Myringotomy tube(s) status; Z98.51 Tubal ligation status

== ENCOUNTER 2021-06-24 04:10 | Emergency (ER) | payer OTHER ==
[~2021-06-24] VITALS: Ht 160 cm; Wt 113.4 kg
[~2021-06-24 04:10] MED LIST changes: +CEPHALEXIN500 M1 PO; +TYLENOL325 M1 PO
[2021-06-24 05:48] LABS: BILIRUBIN Negative (Negative); BLOOD Negative (Negative); CLARITY Cloudy (Clear); COLOR Yellow (Yellow); GLUCOSE Negative (Negative); KETONE Negative (Negative); LEUKO ESTERASE Trace (Negative); NITRITE Negative (Negative); UROBILINOGEN 0.2 E.U./dl (0.0-1.0)
[2021-06-24 05:52] LABS: ALBUMIN 3.5 gm/dl (3.1-4.5); ALKALINE PHOSPHATASE 97 U/L (45-117); BUN 9 mg/dl (7-24); CHLORIDE 109 mmol/L (98-107); CREATININE 0.69 mg/dL (0.55-1.02); POTASSIUM 3.5 mmol/L (3.5-5.1); SGOT/AST 17 IU/L (3-35); SGPT/ALT 25 U/L (12-78); SODIUM 140 mmol/L (136-145); TOTAL PROTEIN 6.7 gm/dL (6.4-8.2)
[2021-06-24 06:03] LABS: BACTERIA TRACE; EPITHELIAL CELLS 21-30
[2021-06-24 06:31] LABS: HEMATOCRIT 37.4 % (37.0-47.0); MEAN CELL VOLUME 91.7 fl (81.0-99.0); MEAN CORPUSCULAR HGB 28.9 pg (27.0-31.0); MEAN CORPUSCULAR HGB CONC 31.6 g/dl (33.0-37.0); MEAN PLATELET VOLUME 9.6 fl (9.6-12.3); PLATELET COUNT AUTOMATED 377 10*3/uL (130-400); RED BLOOD COUNT 4.08 10*6/uL (4.10-5.10); RED CELL DISTRI WIDTH 14.5 % (0-14.5); WHITE BLOOD COUNT 15.8 10*3/uL (4.8-10.8)
[2021-06-24 07:11] LABS: PLATELET SUFFICIENCY NORMAL (NORMAL); TOTAL CELLS COUNTED 100 #CELLS
[2021-06-24 07:17] VITALS: BP 117/56
== END 2021-06-24 08:08 | disposition home or self-care (01) ==
LOC: ED 04:10
PROVIDERS: Emergency Medicine
DX: F41.9 Anxiety disorder, unspecified (principal); R56.9 Unspecified convulsions; J45.909 Unspecified asthma, uncomplicated; E11.9 Type 2 diabetes mellitus without complications; E78.5 Hyperlipidemia, unspecified; G40.909 Epilepsy, unspecified, not intractable, without status epilepticus; F17.200 Nicotine dependence, unspecified, uncomplicated; Z88.1 Allergy status to other antibiotic agents

== ENCOUNTER 2021-08-31 02:41 | Emergency (ER) | payer OTHER ==
[~2021-08-31] VITALS: Ht 165.1 cm; Wt 90.7 kg
[2021-08-31 03:01] VITALS: BP 107/64
== END 2021-08-31 04:35 | disposition home or self-care (01) ==
LOC: ED 02:41
DX: S63.501A Unspecified sprain of right wrist, initial encounter (principal); F17.200 Nicotine dependence, unspecified, uncomplicated; Z88.1 Allergy status to other antibiotic agents; W18.39XA Other fall on same level, initial encounter; Y93.89 Activity, other specified; Y92.89 Other specified places as the place of occurrence of the external cause; Y99.8 Other external cause status

== ENCOUNTER 2021-10-30 18:06 | Emergency (ER) | payer OTHER ==
[~2021-10-30] VITALS: Ht 160 cm; Wt 118.8 kg
[2021-10-30 18:44] VITALS: BP 113/62
== END 2021-10-30 19:31 | disposition left against medical advice (07) ==
LOC: ED 18:06
DX: Z53.21 Procedure and treatment not carried out due to patient leaving prior to being seen by health care provider (principal)

== ENCOUNTER → 2021-11-08 | Outpatient (CLI) | payer OTHER | END | disposition home or self-care (01) | LOC: MRI 10:34 | PROVIDERS: ATTEND Physician Assistant Medical | DX: H93.A9 Pulsatile tinnitus, unspecified ear (principal) ==

== ENCOUNTER 2021-12-30 03:06 | Emergency (ER) | payer OTHER ==
[2021-12-30 03:19] VITALS: BP 105/51
== END 2021-12-30 05:18 | disposition home or self-care (01) ==
LOC: ED 03:06
DX: S00.83XA Contusion of other part of head, initial encounter (principal); J45.909 Unspecified asthma, uncomplicated; E78.5 Hyperlipidemia, unspecified; I10 Essential (primary) hypertension; E11.9 Type 2 diabetes mellitus without complications; Z88.1 Allergy status to other antibiotic agents; Z90.89 Acquired absence of other organs; Z98.890 Other specified postprocedural states; Z90.49 Acquired absence of other specified parts of digestive tract; Z98.51 Tubal ligation status; Z87.891 Personal history of nicotine dependence; W18.39XA Other fall on same level, initial encounter; Y93.89 Activity, other specified; Y92.89 Other specified places as the place of occurrence of the external cause; Y99.8 Other external cause status

== ENCOUNTER 2022-06-15 00:26 | Emergency (ER) | payer OTHER ==
[2022-06-15 00:37] VITALS: BP 136/64
== END 2022-06-15 01:40 | disposition home or self-care (01) ==
LOC: ED 00:26
DX: M17.11 Unilateral primary osteoarthritis, right knee (principal); Z88.1 Allergy status to other antibiotic agents; Z90.89 Acquired absence of other organs; Z90.49 Acquired absence of other specified parts of digestive tract; Z98.890 Other specified postprocedural states; Z87.891 Personal history of nicotine dependence

== ENCOUNTER 2022-07-04 20:26 | Emergency (ER) | payer OTHER ==
[~2022-07-04] VITALS: Ht 160 cm; Wt 114.8 kg
[2022-07-04] MEDS ORDERED: ROPINIROLE HYDRO1 MG PO (20:34)
[2022-07-04] MEDS ORDERED: CLOBAZAM20 MG PO (20:34)
[2022-07-04 21:02] LABS: HEMATOCRIT 42.1 % (37.0-47.0); MANUAL DIFF REFLEX YES; MEAN CELL VOLUME 92.3 fl (81.0-99.0); MEAN CORPUSCULAR HGB 30.5 pg (27.0-31.0); MEAN PLATELET VOLUME 9.3 fl (9.6-12.3); PLATELET COUNT AUTOMATED 423 10*3/uL (130-400); RED BLOOD COUNT 4.56 10*6/uL (4.10-5.10); RED CELL DISTRI WIDTH 14.4 % (0-14.5); WHITE BLOOD COUNT 25.9 10*3/uL (4.8-10.8)
[2022-07-04 21:17] LABS: ALKALINE PHOSPHATASE 99 U/L (45-117); BUN 3 mg/dl (7-24); CHLORIDE 105 mmol/L (98-107); CREATININE 0.91 mg/dL (0.55-1.02); POTASSIUM 3.6 mmol/L (3.5-5.1); SGOT/AST 14 IU/L (3-35); SGPT/ALT 25 U/L (12-78); SODIUM 138 mmol/L (136-145); TOTAL PROTEIN 7.3 gm/dL (6.4-8.2)
[2022-07-04 21:23] LABS: BASOPHILS 2 % (0-1); PLATELET SUFFICIENCY HIGH (NORMAL); TOTAL CELLS COUNTED 100 #CELLS
[2022-07-04 22:16] LABS: BILIRUBIN Negative (Negative); BLOOD Negative (Negative); CLARITY Clear (Clear); COLOR Yellow (Yellow); GLUCOSE Negative (Negative); KETONE Negative (Negative); LEUKO ESTERASE Negative (Negative); NITRITE Negative (Negative); PH 5.5 (4.5-8.0); UROBILINOGEN 0.2 E.U./dl (0.0-1.0)
[2022-07-04 22:24] LABS: URINE AMPHETAMINES < 1000 (1000ng/ml); URINE BARBITURATES < 200 (200ng/ml); URINE BENZODIAZEPINES > 200 (200ng/ml); URINE CANNABINOIDS (THC) < 50 (50ng/ml); URINE COCAINE < 300 (300ng/ml); URINE METHADONE < 300 (300ng/ml); URINE OPIATES < 300 (300ng/ml)
[2022-07-04 22:29] LABS: MUCOUS 1+; RBC 0-2 rbc/hpf (0-2)
[2022-07-04 22:31] LABS: URINE PHENCYCLIDINE < 25 (25ng/ml)
[2022-07-05 01:07] VITALS: BP 104/53
== END 2022-07-05 01:38 | disposition home or self-care (01) ==
LOC: ED 20:26
PROVIDERS: Emergency Medicine
DX: R56.9 Unspecified convulsions (principal); J44.9 Chronic obstructive pulmonary disease, unspecified; E11.9 Type 2 diabetes mellitus without complications; I10 Essential (primary) hypertension; E78.5 Hyperlipidemia, unspecified; F17.200 Nicotine dependence, unspecified, uncomplicated; Z90.89 Acquired absence of other organs; Z90.49 Acquired absence of other specified parts of digestive tract; Z98.51 Tubal ligation status; Z98.890 Other specified postprocedural states; Z88.1 Allergy status to other antibiotic agents; Z79.899 Other long term (current) drug therapy

== ENCOUNTER 2022-09-17 04:44 | Emergency (ER) | payer OTHER ==
[~2022-09-17] VITALS: Ht 160 cm; Wt 116.1 kg
[~2022-09-17 04:44] MED LIST changes: +CLOBAZAM20 MG PO
[2022-09-17 05:51] VITALS: BP 147/63
[2022-09-17] MEDS ORDERED: PREDNISONE20 M1 PO (05:59)
[2022-09-17] MEDS ORDERED: ZITHROMAX250 MG PO (05:59)
== END 2022-09-17 06:30 | disposition home or self-care (01) ==
LOC: ED 04:44
DX: J40 Bronchitis, not specified as acute or chronic (principal); Z88.1 Allergy status to other antibiotic agents; Z90.89 Acquired absence of other organs; Z90.49 Acquired absence of other specified parts of digestive tract; Z98.890 Other specified postprocedural states; Z98.51 Tubal ligation status

== ENCOUNTER 2023-01-23 22:56 | Emergency (ER) | payer OTHER ==
[~2023-01-23] VITALS: Ht 160 cm; Wt 115.2 kg
[2023-01-23] MEDS ORDERED: NAPROXEN250 MG PO (23:30)
[2023-01-23] MEDS ORDERED: METHOCARBAMOL750 M1 PO (23:30)
[2023-01-23 23:39] VITALS: BP 128/68
== END 2023-01-23 23:40 | disposition home or self-care (01) ==
LOC: ED 22:56
DX: S39.012A Strain of muscle, fascia and tendon of lower back, initial encounter (principal); Z88.1 Allergy status to other antibiotic agents; Z90.89 Acquired absence of other organs; Z90.49 Acquired absence of other specified parts of digestive tract; Z98.890 Other specified postprocedural states; Z98.51 Tubal ligation status; F17.200 Nicotine dependence, unspecified, uncomplicated; X58.XXXA Exposure to other specified factors, initial encounter; Y93.89 Activity, other specified; Y92.89 Other specified places as the place of occurrence of the external cause; Y99.8 Other external cause status

== ENCOUNTER 2023-04-19 23:25 | Emergency (ER) | payer OTHER ==
[~2023-04-19] VITALS: Ht 157.4 cm; Wt 111.6 kg
[~2023-04-19 23:25] MED LIST changes: +METHOCARBAMOL750 M1 PO
== END 2023-04-20 00:20 | disposition home or self-care (01) ==
LOC: ED 23:25
DX: S93.401A Sprain of unspecified ligament of right ankle, initial encounter (principal); F32.A Depression, unspecified; F41.9 Anxiety disorder, unspecified; J44.9 Chronic obstructive pulmonary disease, unspecified; Z88.1 Allergy status to other antibiotic agents; Z90.89 Acquired absence of other organs; Z90.49 Acquired absence of other specified parts of digestive tract; Z98.890 Other specified postprocedural states; Z98.51 Tubal ligation status; F17.200 Nicotine dependence, unspecified, uncomplicated; X50.1XXA Overexertion from prolonged static or awkward postures, initial encounter; Y93.89 Activity, other specified; Y92.89 Other specified places as the place of occurrence of the external cause; Y99.8 Other external cause status

== ENCOUNTER 2023-08-11 19:46 | Emergency (ER) | payer OTHER ==
[~2023-08-11] VITALS: Ht 160 cm; Wt 110.2 kg
[2023-08-11 19:54] VITALS: BP 163/61
[2023-08-11 20:43] LABS: MEAN CELL VOLUME 98.8 fl (81.0-99.0); MEAN CORPUSCULAR HGB 31.6 pg (27.0-31.0); MEAN PLATELET VOLUME 9.2 fl (9.6-12.3); PLATELET COUNT AUTOMATED 397 10*3/uL (130-400); RED BLOOD COUNT 4.05 10*6/uL (4.10-5.10); RED CELL DISTRI WIDTH 15.3 % (0-14.5); WHITE BLOOD COUNT 11.3 10*3/uL (4.8-10.8)
[2023-08-11 20:56] LABS: MANUAL DIFF REFLEX YES
[2023-08-11 21:06] LABS: BASOPHILS 1 % (0-1); PLATELET SUFFICIENCY NORMAL (NORMAL); TOTAL CELLS COUNTED 100 #CELLS
[2023-08-11 21:07] LABS: ALKALINE PHOSPHATASE 91 U/L (46-116); BUN 10 mg/dl (9-23); CHLORIDE 108 mmol/L (98-107); POTASSIUM 3.5 mmol/L (3.4-5.1); SGPT/ALT 9 U/L (10-49); TOTAL PROTEIN 6.4 gm/dL (6.0-8.0)
[2023-08-11 23:53] LABS: BILIRUBIN Negative (Negative); BLOOD Negative (Negative); CLARITY Cloudy (Clear); COLOR Yellow (Yellow); GLUCOSE Negative (Negative); KETONE Negative (Negative); LEUKO ESTERASE Trace (Negative); NITRITE Negative (Negative); SPECIFIC GRAVITY 1.015 (1.001-1.030)
[2023-08-12 00:02] LABS: BACTERIA TRACE; EPITHELIAL CELLS 31-40
[2023-08-12] MEDS ORDERED: ONDANSETRON4 MG SL (01:15)
== END 2023-08-12 02:17 | disposition home or self-care (01) ==
LOC: ED 19:46
PROVIDERS: Nurse Practitioner Family
DX: B34.9 Viral infection, unspecified (principal); F41.9 Anxiety disorder, unspecified; F32.A Depression, unspecified; J44.9 Chronic obstructive pulmonary disease, unspecified; Z88.8 Allergy status to other drugs, medicaments and biological substances; Z90.89 Acquired absence of other organs; Z90.49 Acquired absence of other specified parts of digestive tract; Z98.890 Other specified postprocedural states; Z98.51 Tubal ligation status; F17.200 Nicotine dependence, unspecified, uncomplicated; Z79.899 Other long term (current) drug therapy; Z20.822 Contact with and (suspected) exposure to COVID-19

== ENCOUNTER 2023-09-09 22:14 | Emergency (ER) | payer OTHER ==
[~2023-09-09] VITALS: Ht 160 cm; Wt 119.7 kg
[~2023-09-09 22:14] MED LIST changes: +ONDANSETRON4 MG SL
[2023-09-09 22:26] VITALS: BP 123/65
[2023-09-09 23:01] LABS: HEMATOCRIT 40.7 % (37.0-47.0); MANUAL DIFF REFLEX YES; MEAN CELL VOLUME 98.1 fl (81.0-99.0); MEAN CORPUSCULAR HGB 32.8 pg (27.0-31.0); MEAN CORPUSCULAR HGB CONC 33.4 g/dl (33.0-37.0); PLATELET COUNT AUTOMATED 451 10*3/uL (130-400); RED BLOOD COUNT 4.15 10*6/uL (4.10-5.10); RED CELL DISTRI WIDTH 14.8 % (0-14.5); WHITE BLOOD COUNT 20.1 10*3/uL (4.8-10.8)
[2023-09-09 23:11] LABS: ACT PARTIAL THROMBO TIME 29.3 SECONDS (20.0-32.1)
[2023-09-09 23:22] LABS: ALKALINE PHOSPHATASE 91 U/L (46-116); BUN 8 mg/dl (9-23); CHLORIDE 109 mmol/L (98-107); LIPASE 30 U/L (12-53); POTASSIUM 3.9 mmol/L (3.4-5.1); SGPT/ALT 16 U/L (5-49)
[2023-09-09 23:29] LABS: BASOPHILS 1 % (0-1); PLATELET SUFFICIENCY HIGH (NORMAL); TOTAL CELLS COUNTED 100 #CELLS
[2023-09-09 23:58] LABS: BILIRUBIN Negative (Negative); BLOOD Negative (Negative); CLARITY Clear (Clear); COLOR Yellow (Yellow); GLUCOSE Negative (Negative); KETONE Negative (Negative); LEUKO ESTERASE Negative (Negative); NITRITE Negative (Negative); PH 5.5 (4.5-8.0); UROBILINOGEN 0.2 E.U./dl (0.0-1.0)
[2023-09-10 00:32] LABS: EPITHELIAL CELLS 0-2
[2023-09-10] MEDS ORDERED: PEPCID AC10 M2 PO (01:28)
== END 2023-09-10 01:35 | disposition home or self-care (01) ==
LOC: ED 22:14
PROVIDERS: Internal Medicine
DX: K21.9 Gastro-esophageal reflux disease without esophagitis (principal); R11.2 Nausea with vomiting, unspecified; F32.A Depression, unspecified; F41.9 Anxiety disorder, unspecified; J44.9 Chronic obstructive pulmonary disease, unspecified; Z88.8 Allergy status to other drugs, medicaments and biological substances; Z90.89 Acquired absence of other organs; Z90.49 Acquired absence of other specified parts of digestive tract; Z98.890 Other specified postprocedural states; Z98.51 Tubal ligation status; F17.200 Nicotine dependence, unspecified, uncomplicated

== ENCOUNTER 2023-11-14 03:23 | Emergency (ER) | payer OTHER ==
[~2023-11-14] VITALS: Ht 160 cm; Wt 111.6 kg
[~2023-11-14 03:23] MED LIST changes: +PEPCID AC10 M2 PO
[2023-11-14] MEDS ORDERED: PAXIL40 M1 PO (03:44)
[2023-11-14 03:48] VITALS: BP 112/61
== END 2023-11-14 17:22 | disposition home or self-care (01) ==
LOC: ED 03:23
DX: R51.9 Headache, unspecified (principal); R53.83 Other fatigue; J45.909 Unspecified asthma, uncomplicated; F17.200 Nicotine dependence, unspecified, uncomplicated; Z88.1 Allergy status to other antibiotic agents; Z79.899 Other long term (current) drug therapy; Z90.49 Acquired absence of other specified parts of digestive tract; Z90.89 Acquired absence of other organs; Z96.22 Myringotomy tube(s) status

== ENCOUNTER 2024-01-31 01:23 | Emergency (ER) | payer OTHER ==
[~2024-01-31] VITALS: Ht 160 cm; Wt 117.5 kg
[~2024-01-31 01:23] MED LIST changes: +PAXIL40 M1 PO
[2024-01-31 01:37] VITALS: BP 109/55
[2024-01-31] MEDS ORDERED: Midazolam Hydrochloride 5 MG/5 ML VIAL IV ONE (01:40)
[2024-01-31 01:54] LABS: BASO # 0.1 10*3/uL (0.0-0.1); BASO % 0.4 % (0.0-1.0); EOS # 0.2 10*3/uL (0.0-0.4); EOS % 0.7 % (1.0-4.0); HEMATOCRIT 41.2 % (37.0-47.0); LYMPH # 4.2 10*3/uL (1.3-4.4); LYMPH % 15.4 % (27.0-41.0); MEAN CELL VOLUME 96.7 fl (81.0-99.0); MEAN CORPUSCULAR HGB 30.5 pg (27.0-31.0); MEAN CORPUSCULAR HGB CONC 31.6 g/dl (33.0-37.0); MEAN PLATELET VOLUME 9.1 fl (9.6-12.3); MONO # 1.8 10*3/uL (0.1-1.0); MONO % 6.5 % (3.0-9.0); NEUT # 20.7 10*3/uL (2.3-7.9); NEUT % 76.6 % (47.0-73.0); PLATELET COUNT AUTOMATED 437 10*3/uL (130-400); RED BLOOD COUNT 4.26 10*6/uL (4.10-5.10); RED CELL DISTRI WIDTH 14.5 % (0-14.5); WHITE BLOOD COUNT 27.1 10*3/uL (4.8-10.8)
[2024-01-31 02:07] LABS: ACT PARTIAL THROMBO TIME 30.8 SECONDS (20.0-32.1)
[2024-01-31 02:17] LABS: ALKALINE PHOSPHATASE 107 U/L (46-116); BUN 8 mg/dl (9-23); CHLORIDE 100 mmol/L (98-107); ETHYL ALCOHOL < 3.0 mg/dl (<3); LIPASE 27 U/L (12-53); POTASSIUM 4.1 mmol/L (3.4-5.1); SGPT/ALT 11 U/L (5-49); TOTAL PROTEIN 7.4 gm/dL (6.0-8.0)
[2024-01-31 02:23] LABS: BASOPHILS 1 % (0-1); TOTAL CELLS COUNTED 100 #CELLS
[2024-01-31 02:24] LABS: PLATELET SUFFICIENCY HIGH (NORMAL)
[2024-01-31 02:26] LABS: SPHEROCYTES FEW
[2024-01-31] MEDS ORDERED: SODIUM CHLORIDE 0.9% 1,000 ML IV ONE (03:05)
[2024-01-31 03:54] LABS: BILIRUBIN Negative (Negative); BLOOD 1+ (Negative); CLARITY Clear (Clear); COLOR Yellow (Yellow); GLUCOSE Negative (Negative); KETONE Negative (Negative); LEUKO ESTERASE 2+ (Negative); NITRITE Negative (Negative); PH 6.5 (4.5-8.0); SPECIFIC GRAVITY 1.015 (1.001-1.030)
[2024-01-31 04:01] LABS: URINE AMPHETAMINES Negative (1000ng/ml); URINE BARBITURATES Negative (200ng/ml); URINE BENZODIAZEPINES Positive (200ng/ml); URINE CANNABINOIDS (THC) Negative (50ng/ml); URINE COCAINE Negative (300ng/ml); URINE METHADONE Negative (300ng/ml); URINE OPIATES Negative (300ng/ml); URINE PHENCYCLIDINE Negative (25ng/ml)
[2024-01-31 04:15] LABS: BACTERIA 1+; EPITHELIAL CELLS 21-30; MUCOUS 1+; WBC 16-20 wbc/hpf (0-5)
[2024-01-31] MEDS ORDERED: LEVETIRACETAM 750 MG in SODIUM CHLORIDE 0.9% 100 ML IV ONE (04:20)
[2024-01-31] MEDS ORDERED: LEVETIRACETAM 500 MG/5 ML VIAL IV ONE (05:10)
[2024-01-31] MEDS ORDERED: SODIUM CHLORIDE 0.9% 100 ML IV ONE (05:13)
[2024-01-31] MEDS ORDERED: CLOBAZAM20 MG PO (12:03)
[2024-01-31] MEDS ORDERED: AMOX-CLAV 875-1 EACH PO (17:46)
== END 2024-01-31 05:50 | disposition home or self-care (01) ==
LOC: ED 01:23
PROVIDERS: Internal Medicine
DX: G40.909 Epilepsy, unspecified, not intractable, without status epilepticus (principal); F32.A Depression, unspecified; F41.9 Anxiety disorder, unspecified; J44.9 Chronic obstructive pulmonary disease, unspecified; R10.2 Pelvic and perineal pain; Z88.8 Allergy status to other drugs, medicaments and biological substances; Z90.89 Acquired absence of other organs; Z90.49 Acquired absence of other specified parts of digestive tract; Z98.890 Other specified postprocedural states; Z98.51 Tubal ligation status; F17.200 Nicotine dependence, unspecified, uncomplicated; Z79.899 Other long term (current) drug therapy

== ENCOUNTER 2024-01-31 11:47 | Emergency (ER) | payer OTHER ==
[~2024-01-31] VITALS: Ht 160 cm; Wt 116.1 kg
[2024-01-31] MEDS ORDERED: CLOBAZAM20 MG PO (12:03)
[2024-01-31 12:32] LABS: BASO # 0.1 10*3/uL (0.0-0.1); BASO % 0.3 % (0.0-1.0); HEMATOCRIT 39.4 % (37.0-47.0); LYMPH # 2.3 10*3/uL (1.3-4.4); LYMPH % 11.2 % (27.0-41.0); MEAN CELL VOLUME 95.6 fl (81.0-99.0); MEAN CORPUSCULAR HGB 30.8 pg (27.0-31.0); MEAN CORPUSCULAR HGB CONC 32.2 g/dl (33.0-37.0); MEAN PLATELET VOLUME 9.1 fl (9.6-12.3); MONO # 0.7 10*3/uL (0.1-1.0); MONO % 3.2 % (3.0-9.0); NEUT # 17.2 10*3/uL (2.3-7.9); NEUT % 84.6 % (47.0-73.0); PLATELET COUNT AUTOMATED 392 10*3/uL (130-400); RED BLOOD COUNT 4.12 10*6/uL (4.10-5.10); RED CELL DISTRI WIDTH 14.4 % (0-14.5); WHITE BLOOD COUNT 20.4 10*3/uL (4.8-10.8)
[2024-01-31 12:53] LABS: ALKALINE PHOSPHATASE 106 U/L (46-116); BUN 10 mg/dl (9-23); CHLORIDE 103 mmol/L (98-107); POTASSIUM 3.8 mmol/L (3.4-5.1); SGPT/ALT 10 U/L (5-49); TOTAL PROTEIN 7.6 gm/dL (6.0-8.0)
[2024-01-31] MEDS ORDERED: Midazolam Hydrochloride 2 MG/2 ML VIAL IV ONE (13:15)
[2024-01-31] MEDS ORDERED: Ondansetron Hydrochloride 4 MG/2 ML VIAL IV ONE ×2 (13:15→14:55)
[2024-01-31 15:04] VITALS: BP 105/80
[2024-01-31] MEDS ORDERED: Lidocaine Hydrochloride 15 ML UDC PO STA (16:33)
[2024-01-31] MEDS ORDERED: Dicyclomine Hydrochloride 20 MG/10 ML OSYR PO STA (16:33)
[2024-01-31] MEDS ORDERED: MG-AL HYDROXIDE/SIMETICONE 30 ML UDC PO STA (16:33)
[2024-01-31] MEDS ORDERED: Ampicillin Sodium/Sulbactam 3 GM in SODIUM CHLORIDE 0.9% 100 ML IV ONE (16:35)
[2024-01-31] MEDS ORDERED: FAMOTIDINE 50 ML IV ONE (16:35)
[2024-01-31] MEDS ORDERED: AMOX-CLAV 875-1 EACH PO (17:46)
== END 2024-01-31 18:29 | disposition home or self-care (01) ==
LOC: ED 11:47
PROVIDERS: Internal Medicine
DX: L73.9 Follicular disorder, unspecified (principal); F32.A Depression, unspecified; F41.9 Anxiety disorder, unspecified; J44.9 Chronic obstructive pulmonary disease, unspecified; Z88.8 Allergy status to other drugs, medicaments and biological substances; Z90.89 Acquired absence of other organs; Z90.49 Acquired absence of other specified parts of digestive tract; Z98.890 Other specified postprocedural states; Z98.51 Tubal ligation status; F17.200 Nicotine dependence, unspecified, uncomplicated

== ENCOUNTER 2024-02-27 10:45 | Emergency (ER) | payer OTHER ==
[~2024-02-27] VITALS: Wt 115.2 kg
[~2024-02-27 10:45] MED LIST changes: +AMOX-CLAV 875-1 EACH PO
[2024-02-27 10:55] VITALS: BP 139/66
[2024-02-27] MEDS ORDERED: methylPREDNISolone sod succ 125 MG VIAL IM ONE (11:30)
[2024-02-27] MEDS ORDERED: PREDNISONE20 M1 PO (13:11)
== END 2024-02-27 13:16 | disposition home or self-care (01) ==
LOC: ED 10:45
DX: M77.8 Other enthesopathies, not elsewhere classified (principal); F32.A Depression, unspecified; F41.9 Anxiety disorder, unspecified; J44.9 Chronic obstructive pulmonary disease, unspecified; Z88.8 Allergy status to other drugs, medicaments and biological substances; Z90.89 Acquired absence of other organs; Z90.49 Acquired absence of other specified parts of digestive tract; Z98.890 Other specified postprocedural states; Z98.51 Tubal ligation status; F17.200 Nicotine dependence, unspecified, uncomplicated

== ENCOUNTER 2024-06-08 12:43 | Emergency (ER) | payer OTHER ==
[~2024-06-08] VITALS: Ht 160 cm; Wt 119.7 kg
[2024-06-08 12:59] VITALS: BP 121/62
[2024-06-08] MEDS ORDERED: ACETAMINOPHEN 325 MG TAB PO ONE (13:25)
[2024-06-08] MEDS ORDERED: HYDROCODONE-AC1 EAC1 PO (17:16)
== END 2024-06-08 17:23 | disposition home or self-care (01) ==
LOC: ED 12:43
DX: S82.141A Displaced bicondylar fracture of right tibia, initial encounter for closed fracture (principal); Z88.1 Allergy status to other antibiotic agents; Z79.899 Other long term (current) drug therapy; Z79.2 Long term (current) use of antibiotics; Z90.89 Acquired absence of other organs; Z96.22 Myringotomy tube(s) status; Z90.49 Acquired absence of other specified parts of digestive tract; Z98.51 Tubal ligation status; W10.8XXA Fall (on) (from) other stairs and steps, initial encounter; Y93.89 Activity, other specified; Y92.89 Other specified places as the place of occurrence of the external cause; Y99.8 Other external cause status

== ENCOUNTER 2024-07-09 00:59 | Emergency (ER) | payer OTHER ==
[~2024-07-09] VITALS: Ht 160 cm; Wt 109.8 kg
[~2024-07-09 00:59] MED LIST changes: +HYDROCODONE-AC1 EAC1 PO
[2024-07-09] MEDS ORDERED: HYDROCODONE-AC1 EAC1 PO (01:17)
[2024-07-09 04:30] VITALS: BP 122/63
== END 2024-07-09 04:22 | disposition home or self-care (01) ==
LOC: ED 00:59
DX: S83.8X1A Sprain of other specified parts of right knee, initial encounter (principal); F32.A Depression, unspecified; F41.9 Anxiety disorder, unspecified; J44.9 Chronic obstructive pulmonary disease, unspecified; F17.200 Nicotine dependence, unspecified, uncomplicated; Z88.1 Allergy status to other antibiotic agents; Z90.49 Acquired absence of other specified parts of digestive tract; Z98.890 Other specified postprocedural states; Z98.51 Tubal ligation status; Z90.89 Acquired absence of other organs; W01.198A Fall on same level from slipping, tripping and stumbling with subsequent striking against other object, initial encounter; Y93.89 Activity, other specified; Y92.89 Other specified places as the place of occurrence of the external cause; Y99.8 Other external cause status

== ENCOUNTER 2024-08-29 20:36 | Emergency (ER) | payer OTHER ==
[2024-08-29 20:53] VITALS: BP 130/71
[2024-08-29] MEDS ORDERED: Acetaminophen/Hydrocodone 5 MG/325 MG TABLET PO ONE (21:00)
== END 2024-08-29 22:18 | disposition home or self-care (01) ==
LOC: ED 20:36
DX: S86.911A Strain of unspecified muscle(s) and tendon(s) at lower leg level, right leg, initial encounter (principal); F32.A Depression, unspecified; F41.9 Anxiety disorder, unspecified; J44.9 Chronic obstructive pulmonary disease, unspecified; F17.200 Nicotine dependence, unspecified, uncomplicated; Z88.1 Allergy status to other antibiotic agents; Z90.49 Acquired absence of other specified parts of digestive tract; Z90.89 Acquired absence of other organs; Z98.890 Other specified postprocedural states; Z98.51 Tubal ligation status; X50.1XXA Overexertion from prolonged static or awkward postures, initial encounter; Y93.01 Activity, walking, marching and hiking; Y92.000 Kitchen of unspecified non-institutional (private) residence as the place of occurrence of the external cause; Y99.8 Other external cause status

== ENCOUNTER → 2025-01-26 | Outpatient (CLI) | payer OTHER ==
[~2025-01-26] MED LIST changes: +GABAPENTIN800 MG PO; +MUCINEX1200 M1 PO; +VRAYLAR1.5 MG PO
== END | disposition home or self-care (01) ==
LOC: RAD 11:44
PROVIDERS: ATTEND Nurse Practitioner Family
DX: J44.1 Chronic obstructive pulmonary disease with (acute) exacerbation (principal); I51.7 Cardiomegaly

== ENCOUNTER 2025-02-23 20:02 | Emergency (ER) | payer OTHER ==
[~2025-02-23] VITALS: Ht 167.6 cm; Wt 106.6 kg
[2025-02-23 20:02] VITALS: BP 154/84
[2025-02-23] MEDS ORDERED: Metoclopramide Hydrochloride 10 MG/2 ML VIAL IV ONE (20:20)
[2025-02-23] MEDS ORDERED: Ketorolac Tromethamine 30 MG/ML VIAL IV ONE (20:20)
[2025-02-23] MEDS ORDERED: Dexamethasone Sodium Phospha 20 MG/5 ML VIAL IV ONE (20:20)
[2025-02-23] MEDS ORDERED: diphenhydrAMINE hydrochloride 50 MG/ML VIAL IV ONE (20:20)
[2025-02-23] MEDS ORDERED: SODIUM CHLORIDE 0.9% 1,000 ML IV ONE (20:20)
[2025-02-23] MEDS ORDERED: ACETAMINOPHEN 325 MG TAB PO ONE (20:20)
[2025-02-23] MEDS ORDERED: REGLAN10 M1 PO (21:39)
== END 2025-02-23 21:52 | disposition home or self-care (01) ==
LOC: ED 20:02
DX: G43.909 Migraine, unspecified, not intractable, without status migrainosus (principal); F17.200 Nicotine dependence, unspecified, uncomplicated; J44.9 Chronic obstructive pulmonary disease, unspecified; F32.A Depression, unspecified; F41.9 Anxiety disorder, unspecified; Z79.899 Other long term (current) drug therapy; Z88.1 Allergy status to other antibiotic agents; Z90.49 Acquired absence of other specified parts of digestive tract; Z90.89 Acquired absence of other organs; Z98.51 Tubal ligation status; Z98.890 Other specified postprocedural states

== ENCOUNTER 2025-06-25 03:19 | Emergency (ER) | payer OTHER ==
[~2025-06-25] VITALS: Ht 160 cm; Wt 123.8 kg
[~2025-06-25 03:19] MED LIST changes: +REGLAN10 M1 PO
[2025-06-25 03:51] VITALS: BP 138/64
[2025-06-25] MEDS ORDERED: HYDROmorphONE Hydrochloride 0.5 MG/0.5 ML SYRINGE IV ONE ×2 (04:55→05:45)
[2025-06-25] MEDS ORDERED: Ondansetron Hydrochloride 4 MG/2 ML VIAL IV ONE (04:55)
== END 2025-06-25 08:14 | disposition home or self-care (01) ==
LOC: ED 03:19
DX: S90.02XA Contusion of left ankle, initial encounter (principal); S29.8XXA Other specified injuries of thorax, initial encounter; S00.83XA Contusion of other part of head, initial encounter; F17.210 Nicotine dependence, cigarettes, uncomplicated; Z98.51 Tubal ligation status; Z90.49 Acquired absence of other specified parts of digestive tract; Z90.89 Acquired absence of other organs; Z98.890 Other specified postprocedural states; Z88.8 Allergy status to other drugs, medicaments and biological substances; W10.9XXA Fall (on) (from) unspecified stairs and steps, initial encounter; Y93.89 Activity, other specified; Y92.89 Other specified places as the place of occurrence of the external cause; Y99.8 Other external cause status

== ENCOUNTER 2025-08-30 00:59 | Emergency (ER) | payer OTHER ==
[~2025-08-30] VITALS: Ht 162.5 cm; Wt 158.8 kg
[2025-08-30 01:17] VITALS: BP 148/74
[2025-08-30] MEDS ORDERED: Acetaminophen/Oxycodone 5 MG/325 MG TABLET PO ONE (01:25)
[2025-08-30] MEDS ORDERED: Ondansetron Hydrochloride 4 MG TAB PO ONE (01:25)
[2025-08-30] MEDS ORDERED: PREDNISONE20 M1 PO (01:59)
[2025-08-30] MEDS ORDERED: TRAMADOL HCL50 MG PO (01:59)
== END 2025-08-30 02:14 | disposition home or self-care (01) ==
LOC: ED 00:59
DX: M17.11 Unilateral primary osteoarthritis, right knee (principal); F32.A Depression, unspecified; F41.9 Anxiety disorder, unspecified; J44.9 Chronic obstructive pulmonary disease, unspecified; F17.210 Nicotine dependence, cigarettes, uncomplicated; Z98.890 Other specified postprocedural states; Z98.51 Tubal ligation status; Z88.8 Allergy status to other drugs, medicaments and biological substances; Z90.49 Acquired absence of other specified parts of digestive tract; Z87.440 Personal history of urinary (tract) infections

== ENCOUNTER 2025-09-07 17:34 | Inpatient (IN) | payer OTHER ==
[~2025-09-07] VITALS: Ht 160 cm; Wt 118.1 kg
[2025-09-07 17:37] VITALS: BP 123/69
[2025-09-07] MEDS ORDERED: Albuterol Sulf/Ipratropium 3 ML VIAL NEB ONE (18:05)
[2025-09-07 18:27] LABS: BASO # 0.1 10*3/uL (0.0-0.1); BASO % 0.5 % (0.0-1.0); EOS # 0.5 10*3/uL (0.0-0.4); EOS % 2.7 % (1.0-4.0); MEAN CELL VOLUME 90.3 fl (81.0-99.0); MEAN CORPUSCULAR HGB 27.2 pg (27.0-31.0); MEAN PLATELET VOLUME 9.2 fl (9.6-12.3); MONO # 1.3 10*3/uL (0.1-1.0); MONO % 6.5 % (3.0-9.0); NEUT # 13.7 10*3/uL (2.3-7.9); NEUT % 70.0 % (47.0-73.0); NUCLEATED RED BLOOD CELL 0.0 % (0.0-0.0); NUCLEATED RED BLOOD CELL 0.0 10*3/uL (0.0-0.0); PLATELET COUNT AUTOMATED 453 10*3/uL (130-400); RED CELL DISTRI WIDTH 18.5 % (0-14.5)
[2025-09-07 19:03] LABS: BUN 7 mg/dl (9-23)
[2025-09-07] MEDS ORDERED: ACETAMINOPHEN 325 MG TAB PO PRN (20:55)
[2025-09-07] MEDS ORDERED: BISACODYL 5 MG TAB PO PRN (20:55)
[2025-09-07] MEDS ORDERED: Albuterol Sulf/Ipratropium 3 ML VIAL NEB PRN (21:00)
[2025-09-07 21:17] VITALS: BP 116/56
[2025-09-07 21:47] VITALS: BP 118/88
[2025-09-07] MEDS ORDERED: AZITHROMYCIN 250 ML IV SCH (23:00)
[2025-09-07 23:38] LABS: BILIRUBIN Negative (Negative); BLOOD Negative (Negative); CLARITY Clear (Clear); COLOR Yellow (Yellow); KETONE Negative (Negative); LEUKO ESTERASE Negative (Negative); NITRITE Negative (Negative); PH 6.0 (4.5-8.0); SPECIFIC GRAVITY 1.010 (1.001-1.030); UROBILINOGEN 0.2 E.U./dl (0.0-1.0)
[2025-09-08] VITALS: BP 133/66; BP 140/61
[2025-09-08] LABS: BACTERIA TRACE; WBC 0-2 wbc/hpf (0-5)
[2025-09-08 06:14] LABS: BASO # 0.1 10*3/uL (0.0-0.1); BASO % 0.4 % (0.0-1.0); EOS # 0.0 10*3/uL (0.0-0.4); EOS % 0.1 % (1.0-4.0); MEAN CELL VOLUME 90.6 fl (81.0-99.0); MEAN CORPUSCULAR HGB 27.6 pg (27.0-31.0); MEAN PLATELET VOLUME 9.5 fl (9.6-12.3); MONO # 0.7 10*3/uL (0.1-1.0); MONO % 4.3 % (3.0-9.0); NEUT # 12.9 10*3/uL (2.3-7.9); NEUT % 80.4 % (47.0-73.0); NUCLEATED RED BLOOD CELL 0.0 % (0.0-0.0); NUCLEATED RED BLOOD CELL 0.0 10*3/uL (0.0-0.0); PLATELET COUNT AUTOMATED 468 10*3/uL (130-400); RED CELL DISTRI WIDTH 18.7 % (0-14.5)
[2025-09-08 06:39] LABS: BUN 8 mg/dl (9-23); FREE T4 1.06 ng/dl (0.89-1.76); LDL CHOLESTEROL 149 mg/dL (9-159); SGPT/ALT 20 U/L (5-49)
[2025-09-08 06:46] LABS: VITAMIN D, 25-HYDROXY 6.3 ng/mL (30-100)
[2025-09-08 08:00] VITALS: BP 133/73
[2025-09-08] MEDS ORDERED: CLOBAZAM 30 MG PO SCH (10:00)
[2025-09-08] MEDS ORDERED: GABAPENTIN 800 MG TAB PO SCH ×2 (10:00→22:00)
[2025-09-08] MEDS ORDERED: LAMOTRIGINE 100 MG TAB PO SCH ×2 (10:00→22:00)
[2025-09-08] MEDS ORDERED: GUAIFENESIN 600 MG TAB ER PO SCH (10:00)
[2025-09-08 12:00] VITALS: BP 132/72
[2025-09-08] MEDS ORDERED: FOLIC ACID 1 MG TAB PO SCH (12:30)
[2025-09-08] MEDS ORDERED: Cholecalciferol 5,000 IU CAP (125 MCG) PO SCH (12:35)
[2025-09-08 15:48] LABS: ABG O2 SATURATION 90.9 % (94.0-98.0); ARTERIAL BLOOD GAS PH 7.299 (7.350-7.450); ARTERIAL BLOOD GAS PO2 61.3 mmHg (83.0-108.0)
[2025-09-08 15:49] LABS: ABG BASE EXCESS 4.8 mmol/L (-2.0-3.0)
[2025-09-08 16:00] VITALS: BP 125/62
[2025-09-08 19:12] LABS: ABG O2 SATURATION 83.3 % (94.0-98.0); ARTERIAL BLOOD GAS PH 7.339 (7.350-7.450)
[2025-09-08 19:15] LABS: ABG BASE EXCESS 4.8 mmol/L (-2.0-3.0); ARTERIAL BLOOD GAS PO2 47.8 mmHg (83.0-108.0)
[2025-09-08 20:00] VITALS: BP 169/51
[2025-09-09] VITALS: BP 113/56
[2025-09-09 06:22] LABS: BASO # 0.0 10*3/uL (0.0-0.1); BASO % 0.2 % (0.0-1.0); EOS # 0.0 10*3/uL (0.0-0.4); EOS % 0.1 % (1.0-4.0); MEAN CELL VOLUME 92.0 fl (81.0-99.0); MEAN CORPUSCULAR HGB 27.3 pg (27.0-31.0); MEAN PLATELET VOLUME 9.3 fl (9.6-12.3); MONO # 0.7 10*3/uL (0.1-1.0); MONO % 5.0 % (3.0-9.0); NEUT # 11.2 10*3/uL (2.3-7.9); NEUT % 77.0 % (47.0-73.0); NUCLEATED RED BLOOD CELL 0.0 % (0.0-0.0); NUCLEATED RED BLOOD CELL 0.0 10*3/uL (0.0-0.0); PLATELET COUNT AUTOMATED 453 10*3/uL (130-400); RED CELL DISTRI WIDTH 18.6 % (0-14.5)
[2025-09-09 06:26] LABS: BUN 15 mg/dl (9-23)
[2025-09-09 07:47] LABS: ABG O2 SATURATION 94.2 % (94.0-98.0); ARTERIAL BLOOD GAS PH 7.334 (7.350-7.450); ARTERIAL BLOOD GAS PO2 72.1 mmHg (83.0-108.0)
[2025-09-09 07:49] LABS: ABG BASE EXCESS 4.4 mmol/L (-2.0-3.0)
[2025-09-09 08:00] VITALS: BP 116/60
[2025-09-09 12:00] VITALS: BP 128/60
[2025-09-09 16:00] VITALS: BP 113/62
[2025-09-09 20:00] VITALS: BP 111/52
[2025-09-10] VITALS: BP 99/59
[2025-09-10 05:32] LABS: BUN 14 mg/dl (9-23)
[2025-09-10 06:13] LABS: BASO # 0.0 10*3/uL (0.0-0.1); BASO % 0.1 % (0.0-1.0); EOS # 0.0 10*3/uL (0.0-0.4); EOS % 0.1 % (1.0-4.0); MEAN CELL VOLUME 91.6 fl (81.0-99.0); MEAN CORPUSCULAR HGB 27.2 pg (27.0-31.0); MEAN PLATELET VOLUME 9.2 fl (9.6-12.3); MONO # 0.6 10*3/uL (0.1-1.0); MONO % 3.6 % (3.0-9.0); NEUT # 12.5 10*3/uL (2.3-7.9); NEUT % 77.3 % (47.0-73.0); NUCLEATED RED BLOOD CELL 0.0 % (0.0-0.0); NUCLEATED RED BLOOD CELL 0.0 10*3/uL (0.0-0.0); PLATELET COUNT AUTOMATED 442 10*3/uL (130-400); RED CELL DISTRI WIDTH 18.6 % (0-14.5)
[2025-09-10 08:00] VITALS: BP 127/56
[2025-09-10] MEDS ORDERED: FLUTICASONE PROPIONATE Nasal 16 Gm spray NAS SCH (10:00)
[2025-09-10] MEDS ORDERED: VITAMIN D3125 MC1 PO (11:18)
[2025-09-10] MEDS ORDERED: AVPAK AZITHROM250 M1 PO (11:18)
[2025-09-10] MEDS ORDERED: MUCINEX1200 M1 PO (11:18)
== END 2025-09-10 12:05 | disposition home or self-care (01) | DRG 871 ==
LOC: ED 17:34 → 5E 20:40 → EDHOLD 20:40 → 5E 21:29
PROVIDERS: Internal Medicine Critical Care Medicine; Nurse Practitioner Family; Student in an Organized Health Care Education/Training Program; ADMIT Internal Medicine; ATTEND Internal Medicine
PROC: 5A09357 Assistance with Respiratory Ventilation, Less than 24 Consecutive Hours, Continuous Positive Airway Pressure (ICD-10-PCS; principal; 2025-09-08)
PROC: 5A09357 Assistance with Respiratory Ventilation, Less than 24 Consecutive Hours, Continuous Positive Airway Pressure (ICD-10-PCS; 2025-09-09)
PROC: 5A09357 Assistance with Respiratory Ventilation, Less than 24 Consecutive Hours, Continuous Positive Airway Pressure (ICD-10-PCS; 2025-09-10)
DX: A41.9 Sepsis, unspecified organism (principal); J18.9 Pneumonia, unspecified organism; J96.22 Acute and chronic respiratory failure with hypercapnia; J44.1 Chronic obstructive pulmonary disease with (acute) exacerbation; J44.0 Chronic obstructive pulmonary disease with (acute) lower respiratory infection; J45.901 Unspecified asthma with (acute) exacerbation; Z68.42 Body mass index [BMI] 45.0-49.9, adult; J45.909 Unspecified asthma, uncomplicated; K21.9 Gastro-esophageal reflux disease without esophagitis; F41.1 Generalized anxiety disorder; G40.909 Epilepsy, unspecified, not intractable, without status epilepticus; F32.9 Major depressive disorder, single episode, unspecified; I51.7 Cardiomegaly; E66.01 Morbid (severe) obesity due to excess calories; E53.8 Deficiency of other specified B group vitamins; E11.65 Type 2 diabetes mellitus with hyperglycemia; E55.9 Vitamin D deficiency, unspecified; E11.40 Type 2 diabetes mellitus with diabetic neuropathy, unspecified; D75.839 Thrombocytosis, unspecified; F17.210 Nicotine dependence, cigarettes, uncomplicated; Z71.6 Tobacco abuse counseling; Z88.8 Allergy status to other drugs, medicaments and biological substances; Z90.49 Acquired absence of other specified parts of digestive tract; Z98.51 Tubal ligation status; Z79.4 Long term (current) use of insulin

== ENCOUNTER 2025-10-04 18:09 | Inpatient (IN) | payer OTHER ==
[~2025-10-04] VITALS: Ht 160 cm; Wt 119.9 kg
[~2025-10-04 18:09] MED LIST changes: +VITAMIN D3125 MC1 PO
[2025-10-04 18:39] VITALS: BP 98/58
[2025-10-04 18:50] VITALS: BP 100/67
[2025-10-04] MEDS ORDERED: SODIUM CHLORIDE 0.9% 1,000 ML IV ONE ×2 (18:50)
[2025-10-04 19:07] LABS: BILIRUBIN Negative (Negative); BLOOD Negative (Negative); CLARITY Cloudy (Clear); COLOR Yellow (Yellow); KETONE Negative (Negative); LEUKO ESTERASE Negative (Negative); NITRITE Negative (Negative); PH 5.5 (4.5-8.0); SPECIFIC GRAVITY 1.020 (1.001-1.030); UROBILINOGEN 0.2 E.U./dl (0.0-1.0)
[2025-10-04 19:22] LABS: BASO # 0.1 10*3/uL (0.0-0.1); BASO % 0.6 % (0.0-1.0); EOS # 0.4 10*3/uL (0.0-0.4); EOS % 4.5 % (1.0-4.0); MEAN CELL VOLUME 90.6 fl (81.0-99.0); MEAN CORPUSCULAR HGB 26.8 pg (27.0-31.0); MEAN PLATELET VOLUME 9.0 fl (9.6-12.3); MONO # 0.9 10*3/uL (0.1-1.0); MONO % 11.2 % (3.0-9.0); NEUT # 4.3 10*3/uL (2.3-7.9); NEUT % 54.3 % (47.0-73.0); NUCLEATED RED BLOOD CELL 0.0 % (0.0-0.0); NUCLEATED RED BLOOD CELL 0.0 10*3/uL (0.0-0.0); PLATELET COUNT AUTOMATED 387 10*3/uL (130-400); RED CELL DISTRI WIDTH 18.5 % (0-14.5)
[2025-10-04 19:28] LABS: BACTERIA 3+
[2025-10-04 19:29] LABS: YEAST TRACE
[2025-10-04 19:43] LABS: BUN < 5 mg/dl (9-23); SGPT/ALT 22 U/L (5-49)
[2025-10-04] MEDS ORDERED: ACETAMINOPHEN 325 MG TAB PO ONE (19:45)
[2025-10-04] MEDS ORDERED: Albuterol Sulf/Ipratropium 3 ML VIAL NEB ONE (20:20)
[2025-10-04] MEDS ORDERED: ACETAMINOPHEN 325 MG TAB PO PRN (20:45)
[2025-10-04] MEDS ORDERED: BISACODYL 5 MG TAB PO PRN (20:45)
[2025-10-04] MEDS ORDERED: TEMAZEPAM 15 MG CAP PO PRN (20:45)
[2025-10-04] MEDS ORDERED: Albuterol Sulf/Ipratropium 3 ML VIAL NEB SCH (21:15)
[2025-10-05 03:23] VITALS: BP 103/59
[2025-10-05] MEDS ORDERED: VRAYLAR1.5 MG PO (03:29)
[2025-10-05] MEDS ORDERED: HYDROXYZINE PAM50 MG PO (03:30)
[2025-10-05 04:03] LABS: MEAN CELL VOLUME 90.9 fl (81.0-99.0); MEAN CORPUSCULAR HGB 27.2 pg (27.0-31.0); MEAN PLATELET VOLUME 8.7 fl (9.6-12.3); NUCLEATED RED BLOOD CELL 0.0 % (0.0-0.0); NUCLEATED RED BLOOD CELL 0.0 10*3/uL (0.0-0.0); PLATELET COUNT AUTOMATED 340 10*3/uL (130-400); RED CELL DISTRI WIDTH 18.3 % (0-14.5)
[2025-10-05 04:09] LABS: MANUAL DIFF REFLEX YES
[2025-10-05 04:28] LABS: BUN 5 mg/dl (9-23); FREE T4 1.06 ng/dl (0.89-1.76)
[2025-10-05 04:40] LABS: PLATELET SUFFICIENCY NORMAL (NORMAL)
[2025-10-05 06:32] VITALS: BP 90/48
[2025-10-05 08:34] VITALS: BP 110/48
[2025-10-05] MEDS ORDERED: CARIPRAZINE HCL 1.5 MG CAPSULE PO SCH (10:00)
[2025-10-05] MEDS ORDERED: GUAIFENESIN 600 MG TAB ER PO SCH (10:00)
[2025-10-05] MEDS ORDERED: GABAPENTIN 800 MG TAB PO SCH (10:00)
[2025-10-05] MEDS ORDERED: AZITHROMYCIN 250 ML IV SCH (10:00)
[2025-10-05] MEDS ORDERED: LAMOTRIGINE 100 MG TAB PO SCH (10:00)
[2025-10-05] MEDS ORDERED: Cholecalciferol 5,000 IU CAP (125 MCG) PO SCH (10:00)
[2025-10-05 14:35] VITALS: BP 123/55
[2025-10-05] MEDS ORDERED: PERFLUTREN PROTEIN-A MICROSPHR 3 ML VIAL IV ONE (14:52)
[2025-10-05 17:01] VITALS: BP 108/53
[2025-10-05 20:00] VITALS: BP 120/56
[2025-10-06 06:06] LABS: BASO # 0.0 10*3/uL (0.0-0.1); BASO % 0.1 % (0.0-1.0); EOS # 0.0 10*3/uL (0.0-0.4); EOS % 0.1 % (1.0-4.0); MEAN CELL VOLUME 92.7 fl (81.0-99.0); MEAN CORPUSCULAR HGB 27.0 pg (27.0-31.0); MEAN PLATELET VOLUME 9.3 fl (9.6-12.3); MONO # 0.4 10*3/uL (0.1-1.0); MONO % 4.6 % (3.0-9.0); NEUT # 6.4 10*3/uL (2.3-7.9); NEUT % 80.3 % (47.0-73.0); NUCLEATED RED BLOOD CELL 0.0 % (0.0-0.0); NUCLEATED RED BLOOD CELL 0.0 10*3/uL (0.0-0.0); PLATELET COUNT AUTOMATED 362 10*3/uL (130-400); RED CELL DISTRI WIDTH 18.1 % (0-14.5)
[2025-10-06 06:20] LABS: BUN 7 mg/dl (9-23)
[2025-10-06 08:00] VITALS: BP 107/47
[2025-10-06 16:00] VITALS: BP 123/62
[2025-10-06 20:00] VITALS: BP 109/50
[2025-10-07] VITALS: BP 120/62
[2025-10-07 06:07] LABS: BASO # 0.0 10*3/uL (0.0-0.1); BASO % 0.3 % (0.0-1.0); BUN 9 mg/dl (9-23); EOS # 0.0 10*3/uL (0.0-0.4); EOS % 0.0 % (1.0-4.0); MEAN CELL VOLUME 92.6 fl (81.0-99.0); MEAN CORPUSCULAR HGB 26.6 pg (27.0-31.0); MEAN PLATELET VOLUME 9.6 fl (9.6-12.3); MONO # 0.2 10*3/uL (0.1-1.0); MONO % 5.1 % (3.0-9.0); NEUT # 2.6 10*3/uL (2.3-7.9); NEUT % 65.4 % (47.0-73.0); NUCLEATED RED BLOOD CELL 0.0 % (0.0-0.0); NUCLEATED RED BLOOD CELL 0.0 10*3/uL (0.0-0.0); PLATELET COUNT AUTOMATED 320 10*3/uL (130-400); RED CELL DISTRI WIDTH 18.3 % (0-14.5)
[2025-10-07 08:00] VITALS: BP 117/53
[2025-10-07 12:00] VITALS: BP 140/66
[2025-10-07 16:00] VITALS: BP 101/74
[2025-10-07 20:00] VITALS: BP 128/60
[2025-10-08] VITALS: BP 103/59
[2025-10-08 06:17] LABS: MEAN CELL VOLUME 92.7 fl (81.0-99.0); MEAN CORPUSCULAR HGB 27.0 pg (27.0-31.0); MEAN PLATELET VOLUME 9.3 fl (9.6-12.3); NUCLEATED RED BLOOD CELL 0.0 % (0.0-0.0); NUCLEATED RED BLOOD CELL 0.0 10*3/uL (0.0-0.0); PLATELET COUNT AUTOMATED 307 10*3/uL (130-400); RED CELL DISTRI WIDTH 17.8 % (0-14.5)
[2025-10-08 06:21] LABS: MANUAL DIFF REFLEX YES
[2025-10-08 06:39] LABS: BUN 8 mg/dl (9-23)
[2025-10-08 06:54] LABS: PLATELET SUFFICIENCY NORMAL (NORMAL)
[2025-10-08 08:00] VITALS: BP 139/72
[2025-10-08 12:00] VITALS: BP 109/52
[2025-10-08 16:00] VITALS: BP 126/54
[2025-10-08] MEDS ORDERED: MAGNESIUM SULFATE 50 ML IV ONE (17:45)
[2025-10-08 20:00] VITALS: BP 109/57
[2025-10-09] VITALS: BP 109/53
[2025-10-09 06:38] LABS: MANUAL DIFF REFLEX YES; MEAN CELL VOLUME 90.9 fl (81.0-99.0); MEAN CORPUSCULAR HGB 27.2 pg (27.0-31.0); MEAN PLATELET VOLUME 9.6 fl (9.6-12.3); NUCLEATED RED BLOOD CELL 0.0 % (0.0-0.0); NUCLEATED RED BLOOD CELL 0.0 10*3/uL (0.0-0.0); PLATELET COUNT AUTOMATED 332 10*3/uL (130-400); RED CELL DISTRI WIDTH 17.9 % (0-14.5)
[2025-10-09 06:57] LABS: BUN 11 mg/dl (9-23)
[2025-10-09 07:09] LABS: PLATELET SUFFICIENCY NORMAL (NORMAL); STOMATOCYTE FEW
[2025-10-09 08:00] VITALS: BP 148/67
[2025-10-09] MEDS ORDERED: PREDNISONE10 MG PO (11:09)
[2025-10-09] MEDS ORDERED: VITAMIN D3125 MC1 PO (11:09)
[2025-10-09] MEDS ORDERED: MUCINEX1200 M1 PO (11:09)
[2025-10-09] MEDS ORDERED: DOXYCYCLINE HY100 M3 PO (11:09)
== END 2025-10-09 11:18 | disposition left against medical advice (07) | DRG 190 ==
LOC: ED 18:09 → EDHOLD 20:38 → 4E 10-05 15:38
PROVIDERS: Internal Medicine; Nurse Practitioner Family; Student in an Organized Health Care Education/Training Program; ADMIT Internal Medicine; ATTEND Internal Medicine
PROC: 5A09357 Assistance with Respiratory Ventilation, Less than 24 Consecutive Hours, Continuous Positive Airway Pressure (ICD-10-PCS; principal; 2025-10-07)
PROC: 5A09357 Assistance with Respiratory Ventilation, Less than 24 Consecutive Hours, Continuous Positive Airway Pressure (ICD-10-PCS; 2025-10-08)
PROC: 5A09357 Assistance with Respiratory Ventilation, Less than 24 Consecutive Hours, Continuous Positive Airway Pressure (ICD-10-PCS; 2025-10-09)
DX: J44.1 Chronic obstructive pulmonary disease with (acute) exacerbation (principal); J18.9 Pneumonia, unspecified organism; Z68.42 Body mass index [BMI] 45.0-49.9, adult; J44.0 Chronic obstructive pulmonary disease with (acute) lower respiratory infection; R09.02 Hypoxemia; J20.9 Acute bronchitis, unspecified; R09.89 Other specified symptoms and signs involving the circulatory and respiratory systems; G40.909 Epilepsy, unspecified, not intractable, without status epilepticus; F32.9 Major depressive disorder, single episode, unspecified; K21.9 Gastro-esophageal reflux disease without esophagitis; F41.1 Generalized anxiety disorder; G25.81 Restless legs syndrome; G62.9 Polyneuropathy, unspecified; E87.8 Other disorders of electrolyte and fluid balance, not elsewhere classified; Z53.29 Procedure and treatment not carried out because of patient's decision for other reasons; R73.9 Hyperglycemia, unspecified; F17.210 Nicotine dependence, cigarettes, uncomplicated; E53.8 Deficiency of other specified B group vitamins; E55.9 Vitamin D deficiency, unspecified; J45.909 Unspecified asthma, uncomplicated; E66.01 Morbid (severe) obesity due to excess calories; Z88.8 Allergy status to other drugs, medicaments and biological substances; Z90.49 Acquired absence of other specified parts of digestive tract; Z98.51 Tubal ligation status; Z71.6 Tobacco abuse counseling

== ENCOUNTER 2025-10-12 20:08 | Inpatient (IN) | payer OTHER ==
[~2025-10-12] VITALS: Ht 160 cm; Wt 123.5 kg
[~2025-10-12 20:08] MED LIST changes: +HYDROXYZINE PAM50 MG PO
[2025-10-12 20:17] VITALS: BP 145/79
[2025-10-12] MEDS ORDERED: Albuterol Sulf/Ipratropium 3 ML VIAL NEB ONE (20:25)
[2025-10-12] MEDS ORDERED: AZITHROMYCIN 250 ML IV ONE (20:25)
[2025-10-12 20:53] LABS: MEAN CELL VOLUME 89.1 fl (81.0-99.0); MEAN CORPUSCULAR HGB 26.8 pg (27.0-31.0); MEAN PLATELET VOLUME 9.3 fl (9.6-12.3); NUCLEATED RED BLOOD CELL 0.0 % (0.0-0.0); NUCLEATED RED BLOOD CELL 0.0 10*3/uL (0.0-0.0); PLATELET COUNT AUTOMATED 515 10*3/uL (130-400); RED CELL DISTRI WIDTH 17.9 % (0-14.5)
[2025-10-12 20:55] LABS: MANUAL DIFF REFLEX YES
[2025-10-12 21:12] LABS: BUN 6 mg/dl (9-23)
[2025-10-12 21:14] LABS: PLATELET SUFFICIENCY HIGH (NORMAL); STOMATOCYTE FEW
[2025-10-12] MEDS ORDERED: SODIUM CHLORIDE 0.9% 1,000 ML IV SCH (21:20)
[2025-10-12] MEDS ORDERED: Albuterol Sulf/Ipratropium 3 ML VIAL NEB SCH (22:25)
[2025-10-13 01:05] VITALS: BP 122/59
[2025-10-13 01:26] VITALS: BP 130/66
[2025-10-13 06:04] LABS: MEAN CELL VOLUME 90.2 fl (81.0-99.0); MEAN CORPUSCULAR HGB 27.1 pg (27.0-31.0); MEAN PLATELET VOLUME 9.6 fl (9.6-12.3); NUCLEATED RED BLOOD CELL 0.0 % (0.0-0.0); NUCLEATED RED BLOOD CELL 0.0 10*3/uL (0.0-0.0); PLATELET COUNT AUTOMATED 509 10*3/uL (130-400); RED CELL DISTRI WIDTH 18.1 % (0-14.5)
[2025-10-13 06:10] LABS: MANUAL DIFF REFLEX YES
[2025-10-13 06:12] LABS: BUN 8 mg/dl (9-23); FREE T4 1.08 ng/dl (0.89-1.76); LDL CHOLESTEROL 129 mg/dL (9-159); SGPT/ALT 18 U/L (5-49)
[2025-10-13 06:44] LABS: VITAMIN D, 25-HYDROXY 24.5 ng/mL (30-100)
[2025-10-13 06:57] LABS: PLATELET SUFFICIENCY HIGH (NORMAL)
[2025-10-13 06:58] LABS: STOMATOCYTE FEW
[2025-10-13 08:00] VITALS: BP 107/61
[2025-10-13] MEDS ORDERED: LAMOTRIGINE 100 MG TAB PO SCH (10:00)
[2025-10-13] MEDS ORDERED: Cholecalciferol 5,000 IU CAP (125 MCG) PO SCH (10:00)
[2025-10-13] MEDS ORDERED: GABAPENTIN 800 MG TAB PO SCH (10:00)
[2025-10-13] MEDS ORDERED: GUAIFENESIN 600 MG TAB ER PO SCH (10:00)
[2025-10-13] MEDS ORDERED: CARIPRAZINE HCL 1.5 MG CAPSULE PO SCH (10:00)
[2025-10-13 10:34] LABS: BUN 8 mg/dl (9-23)
[2025-10-13 12:00] VITALS: BP 122/57
[2025-10-13 16:00] VITALS: BP 120/55
[2025-10-13 20:00] VITALS: BP 122/63
[2025-10-13] MEDS ORDERED: AZITHROMYCIN 250 ML IV SCH (20:00)
[2025-10-14] VITALS: BP 130/63
[2025-10-14 06:18] LABS: BASO # 0.0 10*3/uL (0.0-0.1); BASO % 0.1 % (0.0-1.0); EOS # 0.0 10*3/uL (0.0-0.4); EOS % 0.0 % (1.0-4.0); MEAN CELL VOLUME 90.4 fl (81.0-99.0); MEAN CORPUSCULAR HGB 26.9 pg (27.0-31.0); MEAN PLATELET VOLUME 9.7 fl (9.6-12.3); MONO # 0.4 10*3/uL (0.1-1.0); MONO % 2.9 % (3.0-9.0); NEUT # 11.7 10*3/uL (2.3-7.9); NEUT % 83.6 % (47.0-73.0); NUCLEATED RED BLOOD CELL 0.0 % (0.0-0.0); NUCLEATED RED BLOOD CELL 0.0 10*3/uL (0.0-0.0); PLATELET COUNT AUTOMATED 518 10*3/uL (130-400); RED CELL DISTRI WIDTH 18.0 % (0-14.5)
[2025-10-14 06:34] LABS: BUN 9 mg/dl (9-23)
[2025-10-14 08:00] VITALS: BP 130/59
[2025-10-14 12:00] VITALS: BP 106/53
[2025-10-14 16:00] VITALS: BP 109/58
[2025-10-14 20:00] VITALS: BP 112/53
[2025-10-14] MEDS ORDERED: GABAPENTIN 800 MG TAB PO SCH (22:00)
[2025-10-15] VITALS: BP 127/58
[2025-10-15 08:00] VITALS: BP 114/56
[2025-10-15 12:00] VITALS: BP 127/65
[2025-10-15 16:00] VITALS: BP 126/66
[2025-10-15 20:00] VITALS: BP 113/50
[2025-10-16] VITALS: BP 113/56
[2025-10-16 06:18] LABS: BUN 11 mg/dl (9-23)
[2025-10-16 06:22] LABS: BASO # 0.0 10*3/uL (0.0-0.1); BASO % 0.1 % (0.0-1.0); EOS # 0.0 10*3/uL (0.0-0.4); EOS % 0.0 % (1.0-4.0); MEAN CELL VOLUME 89.8 fl (81.0-99.0); MEAN CORPUSCULAR HGB 27.3 pg (27.0-31.0); MEAN PLATELET VOLUME 9.3 fl (9.6-12.3); MONO # 0.7 10*3/uL (0.1-1.0); MONO % 5.2 % (3.0-9.0); NEUT # 10.4 10*3/uL (2.3-7.9); NEUT % 76.0 % (47.0-73.0); NUCLEATED RED BLOOD CELL 0.0 % (0.0-0.0); NUCLEATED RED BLOOD CELL 0.0 10*3/uL (0.0-0.0); PLATELET COUNT AUTOMATED 515 10*3/uL (130-400); RED CELL DISTRI WIDTH 18.1 % (0-14.5)
[2025-10-16 08:00] VITALS: BP 118/58
[2025-10-16] MEDS ORDERED: PREDNISONE10 MG PO (11:05)
[2025-10-16] MEDS ORDERED: TRELEGY ELLIPT1 EAC1 INH (11:05)
== END 2025-10-16 12:52 | disposition home or self-care (01) | DRG 871 ==
LOC: ED 20:08 → 5E 21:25 → EDHOLD 21:25 → 5E 23:47
PROVIDERS: Internal Medicine; Student in an Organized Health Care Education/Training Program; ADMIT Internal Medicine; ATTEND Internal Medicine
PROC: 5A09357 Assistance with Respiratory Ventilation, Less than 24 Consecutive Hours, Continuous Positive Airway Pressure (ICD-10-PCS; principal; 2025-10-13)
PROC: 5A09357 Assistance with Respiratory Ventilation, Less than 24 Consecutive Hours, Continuous Positive Airway Pressure (ICD-10-PCS; 2025-10-14)
PROC: 5A09357 Assistance with Respiratory Ventilation, Less than 24 Consecutive Hours, Continuous Positive Airway Pressure (ICD-10-PCS; 2025-10-15)
PROC: 5A09357 Assistance with Respiratory Ventilation, Less than 24 Consecutive Hours, Continuous Positive Airway Pressure (ICD-10-PCS; 2025-10-16)
DX: A41.9 Sepsis, unspecified organism (principal); J18.9 Pneumonia, unspecified organism; J96.22 Acute and chronic respiratory failure with hypercapnia; J96.21 Acute and chronic respiratory failure with hypoxia; J44.1 Chronic obstructive pulmonary disease with (acute) exacerbation; J44.0 Chronic obstructive pulmonary disease with (acute) lower respiratory infection; J45.20 Mild intermittent asthma, uncomplicated; R65.20 Severe sepsis without septic shock; K21.9 Gastro-esophageal reflux disease without esophagitis; G25.81 Restless legs syndrome; F41.1 Generalized anxiety disorder; G40.909 Epilepsy, unspecified, not intractable, without status epilepticus; E78.5 Hyperlipidemia, unspecified; F32.9 Major depressive disorder, single episode, unspecified; E11.65 Type 2 diabetes mellitus with hyperglycemia; F17.210 Nicotine dependence, cigarettes, uncomplicated; D75.839 Thrombocytosis, unspecified; E11.40 Type 2 diabetes mellitus with diabetic neuropathy, unspecified; Z88.8 Allergy status to other drugs, medicaments and biological substances; Z90.49 Acquired absence of other specified parts of digestive tract; Z98.51 Tubal ligation status; Z79.4 Long term (current) use of insulin; Z71.6 Tobacco abuse counseling